=== PATIENT | male | born 1940 | race Caucasian/White ===

== ENCOUNTER 2018-06-04 09:26 | Inpatient (IN) | payer OTHER, MEDICARE ==
--- NOTE | 2018-06-04 10:01 | PDOC ---
History of Present Illness - General History Source: Patient Exam Limitations: No Limitations - History of Present Illness Initial Comments: 06/04/18 10:42 The patient is a 77 year old male , with no significant PMH of who presents to the emergency department s/p fall, that occured yesterday at 2:00pm. The patient reports that he was reaching for a blanket when he fell out of his easy chair. The patient reports falling on his LT side and complains of Lt sided hip and knee pain. The patient reports his LT hip/knee pain is exacerbated with weightbearing. He reports his LT knee pain is exacerbated with active ROM, however denies pain with passive ROM.The patient notes his neighbors were able to lift him back into the chair. The patient notes the neighbors returned later to assist him into bed. The patient reports using a cane occasionally. The patient denies head trauma or LOC. The patient denies prior fall. The patient denies chest pain, shortness of breath, headache and dizziness. Denies fever, chills, nausea, vomit, diarrhea and constipation. Denies dysuria, frequency, urgency and hematuria. Allergies: NKA Social HX: past smoker (quit 40 yrs ago), alcohol use ( beer a day) Surgical HX: prostate and two hernia repairs. PCP: Dr. Ortiz <Socorro Leung - Last Filed: 06/04/18 14:40> <Shante Tate - Last Filed: 06/04/18 15:07> - General Chief Complaint: Injury Stated Complaint: FALL Time Seen by Provider: 06/04/18 10:01 Past History <Socorro Leung - Last Filed: 06/04/18 14:40> - Past Medical History Anemia: No Asthma: No Cancer: Yes (PROSTATE-DX 2010, SKIN) Cardiac Disorders: No CVA: No COPD: No CHF: No Dementia: No Diabetes: No GI Disorders: No Disorders: No HTN: Yes (VARIES FROM HIGH TO LOW - NO MEDS) Hypercholesterolemia: No (BORDERLINE-DIET CONTROLLED) Liver Disease: No Seizures: No Thyroid Disease: No - Surgical History Abdominal Surgery: No Appendectomy: No Cardiac Surgery: No Cholecystectomy: No Lung Surgery: No Neurologic Surgery: No Orthopedic Surgery: No - Suicide/Smoking/Psychosocial Hx Smoking History: Former smoker Have you smoked in the past 12 months: No Number of Cigarettes Smoked Daily: 20 If you are a former smoker, when did you quit?: 1979 Cigars Per Day: 0 Information on smoking cessation initiated: No Hx Alcohol Use: No Drug/Substance Use Hx: No Substance Use Type: Alcohol Hx Substance Use Treatment: No <LeaShante eagle - Last Filed: 06/04/18 15:07> - Past Medical History Allergies/Adverse Reactions: Allergies Allergy/AdvReac Type Severity Reaction Status Date / Time No Known Drug Allergies Allergy Verified 06/04/18 09:51 Home Medications: Ambulatory Orders [place]-3 Fatty Acids/Fish Oil [Fish Oil 1,000 mg Softgel] 1,000 mg PO DAILY 09/05 Timolol Maleate [Istalol] 5 ml OU DAILY 09/06/15 Review of Systems - Review of Systems Able to Perform ROS?: Yes Comments:: 06/04/18 11:00 GENERAL/CONSTITUTIONAL: No fever or chills. No weakness. HEAD, EYES, EARS, NOSE AND THROAT: No change in vision. No ear pain or discharge. No sore throat. CARDIOVASCULAR: No chest pain or shortness of breath. RESPIRATORY: No cough, wheezing, or hemoptysis. GASTROINTESTINAL: No nausea, vomiting, diarrhea or constipation. GENITOURINARY: No dysuria, frequency, or change in urination. MUSCULOSKELETAL: (+) Left hip and left knee pain. painful ambulation. No muscle swelling. No neck or back pain. SKIN: No rash NEUROLOGIC: No headache, vertigo, loss of consciousness, or change in strength/ sensation. ENDOCRINE: No increased thirst. No abnormal weight change. HEMATOLOGIC/LYMPHATIC: No anemia, easy bleeding, or history of blood clots. ALLERGIC/IMMUNOLOGIC: No hives or skin allergy. <Socorro Leung - Last Filed: 06/04/18 14:40> *Physical Exam - Vital Signs Last Vital Signs Temp Pulse Resp BP Pulse Ox 97.6 F 93 H 16 146/90 97 06/04/18 09:41 06/04/18 09:41 06/04/18 09:41 06/04/18 09:41 06/04/18 09:41 - Physical Exam Comments: 06/04/18 10:59 GENERAL: Awake, alert, and fully oriented x3, in no acute distress HEAD: No signs of trauma EYES: PERRLA, EOMI, sclera anicteric, conjunctiva clear ENT: Auricles normal inspection, hearing grossly normal, nares patent, oropharynx clear without exudates. Moist mucosa NECK: Normal ROM, supple, no lymphadenopathy, JVD, or masses LUNGS: Breath sounds equal, clear to auscultation bilaterally. No wheezes, and no crackles HEART: Regular rate and rhythm, normal S1 and S2, no murmurs, rubs or gallops ABDOMEN: Soft, nontender, normoactive bowel sounds. No guarding, no rebound. No masses MUSKULOSKELETAL: + LT is mildly ttp. No ecchymosis, no spinous process tenderness in the cervical, T, or L spine. No chest wall tenderness EXTREMITIES: + Decreased ROM of left hip secondary to patient's pain. Mild left hip ttp. Mild decrease ROM of left knee on passive ROM secondary to pain. full ROM of left knee on passive ROM. No joint line tenderness. No edema. No clubbing or cyanosis. No cords, erythema. NEUROLOGICAL: Cranial nerves II through XII grossly intact. Normal speech. Pt is able to stand on exam with assistance but reluctant to take steps. Finger to nose intact. Rapid alternating movements intact. Reflexes 2/4. Leg/hip flexion LT 2/5, RT 1/5. Dorsiflexion and plantar flexion 5/5. Sensation intact to light touch. SKIN: Warm, Dry, normal turgor, no rashes or lesions noted. <Socorro Leung - Last Filed: 06/04/18 14:40> - Vital Signs Last Vital Signs Temp Pulse Resp BP Pulse Ox 97.6 F 93 H 16 146/90 97 06/04/18 09:41 06/04/18 09:41 06/04/18 09:41 06/04/18 09:41 06/04/18 09:41 <Shante Tate - Last Filed: 06/04/18 15:07> Moderate Sedation - Procedure Monitoring Vital Signs: Procedure Monitoring Vital Signs Temperature 97.6 F 06/04/18 09:41 Pulse Rate 93 H 06/04/18 09:41 Respiratory Rate 16 06/04/18 09:41 Blood Pressure 146/90 06/04/18 09:41 O2 Sat by Pulse Oximetry (%) 97 06/04/18 09:41 <MadhuSocorro - Last Filed: 06/04/18 14:40> - Procedure Monitoring Vital Signs: Procedure Monitoring Vital Signs Temperature 97.6 F 06/04/18 09:41 Pulse Rate 93 H 06/04/18 09:41 Respiratory Rate 16 06/04/18 09:41 Blood Pressure 146/90 06/04/18 09:41 O2 Sat by Pulse Oximetry (%) 97 06/04/18 09:41 <LeaShante - Last Filed: 06/04/18 15:07> ED Treatment Course - LABORATORY CBC & Chemistry Diagram: 06/04/18 10:25 06/04/18 10:25 - RADIOLOGY Radiograph Interpretation: 06/04/18 13:11 EXAM#: TYPE/EXAM: RESULT: [id number] RAD/HIP PELVIS-LEFT Fall with left hip pain. Single AP view of the pelvis. Demineralized osseous structures. Surgical clips are noted in pelvis. Levoscoliosis of lumbosacral spine. Symmetrical bony trabecular pattern is seen in the proximal femur bilaterally. Symmetrical articulation of the hip joints. Normal contour of the femoral heads. No evidence of avascular necrosis. Left hip 2 views. No displaced fracture is seen. Vascular calcifications are noted. Impression. The visualized osseous structures appear intact, no acute bony abnormality seen. Left hip. No displaced fracture is seen. Reported By: Kendrick Cardona MD 06/04/18 1111 EXAM#: TYPE/EXAM: RESULT: [id number] RAD/CHEST - PA Status post fall. AP view of the chest compared with May 03, 2011. Patient is rotated to the left side. No evidence of cardiomegaly. Unremarkable contour of the thoracic aorta. The pulmonary vasculature is normal. No evidence of pulmonary infiltrates, atelectasis. No pleural effusion or pneumothorax is seen. Demineralized osseous structures. Impression. No evidence of active pulmonary disease. Reported By: Kendrick Cardona MD 06/04/18 1145 EXAM#: TYPE/EXAM: RESULT: [id number] US/ABDOMEN US -LIMITED HISTORY PROVIDED: Elevated bilirubin. Real time examination of the abdomen demonstrates the following: The gallbladder is normal in size and does contain multiple gallstones. There is no evidence of intra or extrahepatic biliary duct dilatation. The liver is normal in size and texture with no intrahepatic masses seen. Hepatopedal flow is documented within the main portal vein. The pancreas is normal in size and texture with no pancreatic masses identified. The spleen is not enlarged. There is no evidence of hydronephrosis or acute renal abnormalities. Bilateral renal cysts are present. There is no evidence of AAA. The IVC is patent. IMPRESSION: Cholelithiasis and bilateral renal cysts. No evidence of biliary ductal dilatation or acute pathology within the abdomen. Reported By: Silverio Ashton MD 06/04/18 9605 EXAM#: TYPE/EXAM: RESULT: [id number] CT/HEAD CT WITHOUT CONTRAST New onset of inability to walk. CT scan of the brain. A noncontrast CT scan of the brain was performed. No prior is available for comparison. There is moderate volume loss and ventricular dilatation. Moderate chronic microvascular ischemic changes are present No mass lesion, gross acute infarct or intracranial hemorrhage are identified. Visualized paranasal sinuses and mastoid air cells are well aerated. Calcification of the cavernous carotid arteries are noted. The calvarium is intact . Impression: Moderate atrophy. No gross evidence of a focal intracranial lesion or hemorrhage is seen. Correlate clinically to determine further evaluation and follow-up. Reported By: Vee Liu MD 06/04/18 1410 <Socorro Leung - Last Filed: 06/04/18 14:40> - LABORATORY CBC & Chemistry Diagram: 06/04/18 10:25 06/04/18 10:25 <Shante aTte - Last Filed: 06/04/18 15:07> Medical Decision Making - Medical Decision Making 06/04/18 14:18 Dr. Cordoba's office was paged for admission <Socorro Leung - Last Filed: 06/04/18 14:40> - Medical Decision Making 06/04/18 13:20 Pt presents to the ED complaining of hip pain and difficulty ambulating after fall from an armchair. Able to weight bear but with significant pain. Denies LOC or anticoagulants. Xray is negative for fracture. Labs show elevated bilirubin--US checked in the ED which is negative for obstruction. Will evaluate whether patient is able to walk and discharge home if he is ambulatory. <Shante Tate - Last Filed: 06/04/18 15:07> *DC/Admit/Observation/Transfer - Attestations Scribe Attestion: 06/04/18 11:01 Documentation prepared by Socorro Leung, acting as medical illustrator for Shante Tate MD <Socorro Leung - Last Filed: 06/04/18 14:40> - Discharge Dispostion Decision to Admit order: Yes <Shante Tate - Last Filed: 06/04/18 15:07> Diagnosis at time of Disposition: Unable to ambulate - Discharge Dispostion Condition at time of disposition: Good
[2018-06-04 10:33] LABS: HEMOGLOBIN 14.9 GM/dL (11.7-16.9); MCH 31.3 pg (25.7-33.7); MCHC 35.4 g/dl (32.0-35.9); MEAN CELL VOLUME 88.2 fl (80-96); MEAN PLT VOLUME 7.7 fl (7.5-11.1); PLATELET COUNT 179 K/MM3 (134-434); RBC 4.77 M/mm3 (4.00-5.60); RDW 14.3 % (11.9-15.9); WHITE BLOOD COUNT 6.7 K/mm3 (4.0-10.0)
[2018-06-04] MEDS ORDERED: ACETAMINOPHEN 1000 MG/100 ML VIAL (NON FORMULARY) IVPB ONE (10:43)
[2018-06-04] MEDS ORDERED: ACETAMINOPHEN INJECTION 100 ML IVPB ONE (11:10)
[2018-06-04 11:13] LABS: ALBUMIN 4.3 g/dl (3.4-5.0); ALK PHOS 99 U/L (45-117); ANION GAP 8 MMOL/L (8-16); BILIRUBIN,TOTAL 3.3 mg/dL (0.2-1); BLOOD UREA NITROGEN 24 mg/dL (7-18); CALCIUM 8.9 mg/dL (8.5-10.1); CHLORIDE 109 mmol/L (98-107); CO2 26 mmol/L (21-32); CREATININE 1.3 mg/dL (0.55-1.3); GLUCOSE,RANDOM 147 mg/dL (74-106); SGOT/AST 26 U/L (15-37); SGPT/ALT 40 U/L (13-61); SODIUM 143 mmol/L (136-145); TOT PROT 7.4 g/dl (6.4-8.2)
[2018-06-04] MEDS ORDERED: morphine CARPU-JECT 2 MG/1 ML DISP.SYRIN IVPUSH ONE (11:18)
[2018-06-04] MEDS ORDERED: MORPHINE SULFATE 2 MG/ML VIAL ONE (11:25)
[2018-06-04 12:21] LABS: BILIRUBIN,DIRECT 0.4 mg/dL (0.0-0.2)
[2018-06-04 12:34] LABS: INR 1.19 (0.83-1.09); PROTHROMBIN TIME (PATIENT) 14.1 SEC (9.7-13.0)
--- NOTE | 2018-06-04 15:02 | HP ---
Admitting History and Physical - Primary Care Physician PCP: Violeta Ortiz - Admission Chief Complaint: s/p fall inabilty to ambulate History of Present Illness: 06/04/18 10:42 The patient is a 77 year old male , with no significant PMH of who presents to the emergency department s/p fall, that occured yesterday at 2:00pm. The patient reports that he was reaching for a blanket when he fell out of his easy chair. The patient reports falling on his LT side and complains of Lt sided hip and knee pain. The patient reports his LT hip/knee pain is exacerbated with weightbearing. He reports his LT knee pain is exacerbated with active ROM, however denies pain with passive ROM.The patient notes his neighbors were able to lift him back into the chair. The patient notes the neighbors returned later to assist him into bed. The patient reports using a cane occasionally. The patient denies head trauma or LOC. The patient denies prior fall. History Source: Patient, Medical Record - Past Medical History ENT: Yes: Other (glaucoma) - Smoking History Smoking history: Former smoker Have you smoked in the past 12 months: No Aproximately how many cigarettes per day: 20 If you are a former smoker, when did you quit?: 1978 - Alcohol/Substance Use Hx Alcohol Use: No Home Medications - Allergies Allergies/Adverse Reactions: Allergies Allergy/AdvReac Type Severity Reaction Status Date / Time No Known Drug Allergies Allergy Verified 06/04/18 09:51 - Home Medications Home Medications: Ambulatory Orders [place]-3 Fatty Acids/Fish Oil [Fish Oil 1,000 mg Softgel] 1,000 mg PO DAILY 09/05 Timolol Maleate [Istalol] 5 ml OU DAILY 09/06/15 Review of Systems - Review of Systems Musculoskeletal: reports: Other (unable to ambulate ,) Physical Examination Vital Signs: Vital Signs Temperature 98.0 F 06/04/18 13:35 Pulse Rate 98 H 06/04/18 13:35 Respiratory Rate 18 06/04/18 13:35 Blood Pressure 178/110 H 06/04/18 13:35 O2 Sat by Pulse Oximetry (%) 100 06/04/18 13:35 Constitutional: Yes: Calm, Thin Cardiovascular: Yes: Regular Rate and Rhythm, S1, S2 Respiratory: Yes: CTA Bilaterally Gastrointestinal: Yes: Normal Bowel Sounds, Soft Edema: No Neurological: Yes: Alert, Oriented Labs: CBC, BMP 06/04/18 10:25 06/04/18 10:25 Imaging - Results Chest X-ray: Report Reviewed X-ray: Report Reviewed Cat Scan: Report Reviewed Ultrasound: Report Reviewed Problem List - Problems (1) Status post fall Assessment/Plan: PMR PT neurology emg dvt ppx Code(s): Z91.81 - HISTORY OF FALLING (2) Unable to ambulate Assessment/Plan: lumbar sacral spine xray PT pain control stool softners Code(s): R26.2 - DIFFICULTY IN WALKING, NOT ELSEWHERE CLASSIFIED (3) Glaucoma Assessment/Plan: eye drops Code(s): H40.9 - UNSPECIFIED GLAUCOMA
[2018-06-04] MEDS ORDERED: ACETAMINOPHEN 325 MG TABLET (FP) PO PRN (15:19)
[2018-06-04] MEDS ORDERED: MORPHINE SULFATE 2 MG/ML VIAL IVPUSH PRN (15:20)
[2018-06-04] MEDS ORDERED: ACETAMINOPHEN 325 MG TABLET (FP) PO SCH (18:00)
--- NOTE | 2018-06-04 18:50 | CONS ---
DATE OF CONSULTATION: 06/04/2018 PHYSICAL MEDICINE REHABILITATION CONSULTATION REFERRING PHYSICIAN: Melinda Dhillon MD HISTORY OF PRESENT ILLNESS: The patient is a 77-year-old man with a past medical history of glaucoma and back pain who was admitted to [facility] after he fell at home and was unable to ambulate. The patient states that he was placing a blanket over a chair when he lost his balance, falling on his left side. He developed left hip and knee pain and was unable to get up. The patient claims to have no numbness or tingling. He does note that his balance has been off for some time but denied head trauma or loss of consciousness. The patient has undergone evaluation including a CBC that showed a normal WBC of 6.7, normal hemoglobin of 14.9, a normal platelet count of 179, normal MCV and RDW. The patient's chemistries showed a slightly elevated BUN of 24, a creatinine of 1.3, normal sodium at 143, potassium of 4.0, a slightly elevated chloride of 109 and CO2 normal at 26. The patient had a CT of the head which showed moderate atrophy but no focal intracranial lesion or hemorrhage. The patient underwent an x-ray of his left hip which showed no displaced fracture, no avascular necrosis and symmetric articulation of the hip joint. There was some levoscoliosis of the lumbosacral spine noted. PAST MEDICAL AND SURGICAL HISTORY: Significant for prostate cancer with prostate surgery, two hernia repairs, skin cancer, history of possible hypertension and glaucoma but chronically, the patient does have some degree of back discomfort. ALLERGIES: None noted. SOCIAL HISTORY: The patient lives alone in a co-op apartment with about 12 steps to enter. He is a former tobacco user but quit many decades ago. He states that premorbidly, he was ambulatory without assistive device but again, he did note some loss of balance. REVIEW OF SYSTEMS: No headache, lightheadedness, dizziness, blurry vision. No new double vision. No nausea, vomiting, difficulty swallowing or difficulty chewing. No chest pain, shortness of breath, dyspnea on exertion, cough or abdominal discomfort. No bowel or bladder incontinence. No fever or chills. Again, he complains of some back pain, left hip pain, weakness, difficulty elevating his legs but no numbness, tingling or coldness in the legs. No numbness or tingling in the upper extremities. No bruising or rash noted. PHYSICAL EXAMINATION: GENERAL: The patient is an elderly man seen sitting up on a stretcher in no acute distress. He is awake, alert and cooperative. He appears to have a normal BMI. HEENT: Normocephalic, atraumatic. His extraocular muscles appear full. No obvious facial weakness. No oral ulcers. Dry mucous membranes. NECK: Supple. EXTREMITIES: No pitting edema or calf tenderness. There is perhaps some trace edema noted. NEUROMUSCULAR: He is awake, alert, oriented x3. Cranial nerves 2 through 12 are grossly intact. He has fairly good strength and range with some mild arthritic changes noted in his hands. In the lower extremities, he has difficulty elevating his legs off the bed, especially the left leg, but he does have at least 3 out of 5 knee extensor strength. Good dorsiflexion and plantar flexion strength. Normal sensation to pinprick. No advanced osteo-degenerative changes. He does have pain in the left hip with internal and external rotation but no pain on the right side with internal or external rotation. He does have some mild tenderness across his lower back. OVERALL IMPRESSION: 1. Deficits in mobility activities of daily living status post fall. 2. Left hip pain; cannot rule out occult hip fracture. 3. Left knee pain, probable contusion. 4. Chronic low back pain. 5. Loss of balance. 6. History of hypertension. 7. History of glaucoma. 8. History of prostate cancer status post surgery. 9. Elevated BUN to creatinine. 10. Increased risk for deep vein thrombosis due to immobility. PLANS/SUGGESTIONS: 1. Agree with neurologic evaluation. 2. Consider CAT scan of the left hip if hip pain continues. 3. Consider orthopedic consultation. 4. Pain control. 5. Physical therapy. 6. Deep vein thrombosis prophylaxis until more mobile; would consider subcutaneous heparin 5000 units q. 12 hours. 7. Skin precautions; avoid heel and sacral pressure. 8. Monitor for constipation, especially since he is receiving pain medication and is immobile. 9. The patient may require short-term rehab in a [facility] facility vs. at home, depending on his response to the above measures, workup and length of hospitalization. Thank you for this referral. DARYL MELENDEZ M.D. KAREN/[id number]
[2018-06-04] MEDS: TIMOLOL 0.5% OPHTHALMIC SOL 5 ML BOTTLE OU SCH (22:11)
[2018-06-05 05:46] LABS: BASO % 0.7 % (0-2.0); EOS % 0.7 % (0-4.5); HEMATOCRIT 42.7 % (35.4-49); HEMOGLOBIN 14.8 GM/dL (11.7-16.9); LYMPH % 7.7 % (8-40); MCH 30.9 pg (25.7-33.7); MCHC 34.7 g/dl (32.0-35.9); MEAN CELL VOLUME 88.9 fl (80-96); MEAN PLT VOLUME 7.7 fl (7.5-11.1); MONO % 9.7 % (3.8-10.2); NEUT % 81.2 % (42.8-82.8); PLATELET COUNT 156 K/MM3 (134-434); RDW 14.5 % (11.9-15.9); WHITE BLOOD COUNT 6.2 K/mm3 (4.0-10.0)
[2018-06-05 06:13] LABS: ALBUMIN 4.1 g/dl (3.4-5.0); ALK PHOS 92 U/L (45-117); ANION GAP 8 MMOL/L (8-16); BILIRUBIN,TOTAL 4.1 mg/dL (0.2-1); BLOOD UREA NITROGEN 20 mg/dL (7-18); CALCIUM 8.6 mg/dL (8.5-10.1); CHLORIDE 109 mmol/L (98-107); CO2 26 mmol/L (21-32); GLUCOSE,RANDOM 107 mg/dL (74-106); MAGNESIUM 2.1 mg/dL (1.8-2.4); PHOSPHOROUS 2.7 mg/dL (2.5-4.9); POTASSIUM 3.6 mmol/L (3.5-5.1); SGOT/AST 22 U/L (15-37); SGPT/ALT 31 U/L (13-61); SODIUM 143 mmol/L (136-145); TOT PROT 7.1 g/dl (6.4-8.2)
[2018-06-05] MEDS: TIMOLOL 0.5% OPHTHALMIC SOL 5 ML BOTTLE OU SCH ×2 (10:55→22:31)
--- NOTE | 2018-06-05 19:49 | PN ---
Progress Note, Physician Chief Complaint: S/p fall History of Present Illness: Previous notes and events reviewed awake and alert NAD complain of L leg pain L hip xray neg for fracture Head CT neg for gross focal intracranial lesion or hemorrhage - Current Medication List Current Medications: Active Medications Acetaminophen (Tylenol -) 650 mg PO Q6H PRN PRN Reason: PAIN LEVEL 1-5 Morphine Sulfate (Morphine Sulfate) 2 mg IVPUSH Q4H PRN PRN Reason: PAIN LEVEL 7 - 10 Timolol Maleate (Timoptic 0.5%) 1 drop OU BID ALAN Last Admin: 06/05/18 10:55 Dose: 1 drop - Objective Vital Signs: Vital Signs Temperature 99.0 F 06/05/18 14:30 Pulse Rate 85 06/05/18 14:30 Respiratory Rate 20 06/05/18 14:30 Blood Pressure 131/79 06/05/18 14:30 O2 Sat by Pulse Oximetry (%) 97 06/05/18 14:00 Constitutional: Yes: No Distress, Anxious (states he wants to go home) Eyes: Yes: Conjunctiva Clear Neck: Yes: Supple Cardiovascular: Yes: Regular Rate and Rhythm Respiratory: Yes: CTA Bilaterally Gastrointestinal: Yes: Normal Bowel Sounds, Soft Musculoskeletal: Yes: Muscle Weakness, Other (L leg and hip pain) Extremities: Yes: WNL Edema: No Integumentary: Yes: WNL Neurological: Yes: Alert, Oriented Psychiatric: Yes: Alert, Oriented Labs: CBC, BMP 06/05/18 05:20 06/05/18 05:20 INR, PTT INR 1.19 (0.83-1.09) H 06/04/18 10:25 <Mara Rogers - Last Filed: 06/05/18 19:44> - Current Medication List Current Medications: Active Medications Acetaminophen (Tylenol -) 650 mg PO Q6H PRN PRN Reason: PAIN LEVEL 1-5 Docusate Sodium (Colace -) 300 mg PO HS ALAN Heparin Sodium (Porcine) (Heparin -) 5,000 unit SQ BID ALAN Morphine Sulfate (Morphine Sulfate) 2 mg IVPUSH Q4H PRN PRN Reason: PAIN LEVEL 7 - 10 Senna (Senna -) 2 tab PO HS ALAN Timolol Maleate (Timoptic 0.5%) 1 drop OU BID ALAN Last Admin: 06/05/18 10:55 Dose: 1 drop - Objective Vital Signs: Vital Signs Temperature 99 F 06/05/18 19:50 Pulse Rate 91 H 06/05/18 19:50 Respiratory Rate 18 06/05/18 19:50 Blood Pressure 132/92 06/05/18 19:50 O2 Sat by Pulse Oximetry (%) 100 06/05/18 19:50 Labs: CBC, BMP 06/05/18 05:20 06/05/18 05:20 INR, PTT INR 1.19 (0.83-1.09) H 06/04/18 10:25 <David Cordoba - Last Filed: 06/05/18 21:06> Problem List - Problems (1) Glaucoma Code(s): H40.9 - UNSPECIFIED GLAUCOMA (2) Left leg pain Code(s): M79.605 - PAIN IN LEFT LEG (3) Status post fall Code(s): Z91.81 - HISTORY OF FALLING (4) Unable to ambulate Code(s): R26.2 - DIFFICULTY IN WALKING, NOT ELSEWHERE CLASSIFIED <Mara Rogers - Last Filed: 06/05/18 19:44> Assessment/Plan -neurology consult pending -PT -ortho consult placed -tylenol PRN for pain management -colace and senna bowel regimen -cont with timolol for glaucoma -low sodium diet -elev BUN/Cr trending down, will monitor, if cont to stay elev renal consult -dvt ppx <Mara Rogers - Last Filed: 06/05/18 19:44> I HAVE EXAMINED THE PATIENT AND AGREE WITH THE ABOVE NOTE <David Cordoba - Last Filed: 06/05/18 21:06>
[2018-06-05] MEDS: ALPRAZolam 0.25 MG TABLET PO ONE ×2 (22:17→22:30)
[2018-06-05] MEDS ORDERED: HALOPERIDOL LACTATE 5 MG/ML IM ONE (22:29)
[2018-06-05] MEDS: DOCUSATE SODIUM 100 MG CAPSULE (FP) PO SCH (22:30)
[2018-06-05] MEDS: SENNOSIDES 8.6MG TABLET (FP) PO SCH (22:31)
[2018-06-05] MEDS: HEPARIN NA (PORCINE) 5,000 UNITS/ML 1ML VIAL SQ SCH (22:31)
[2018-06-06 04:15] VITALS: BMI 23.3
[2018-06-06 07:46] LABS: HEMATOCRIT 39.5 % (35.4-49); HEMOGLOBIN 14.1 GM/dL (11.7-16.9); MCHC 35.6 g/dl (32.0-35.9); MEAN CELL VOLUME 87.2 fl (80-96); PLATELET COUNT 145 K/MM3 (134-434); RBC 4.53 M/mm3 (4.00-5.60); RDW 13.9 % (11.9-15.9); WHITE BLOOD COUNT 5.8 K/mm3 (4.0-10.0)
[2018-06-06 07:55] LABS: ALBUMIN 3.6 g/dl (3.4-5.0); ALK PHOS 82 U/L (45-117); ANION GAP 8 MMOL/L (8-16); BILIRUBIN,TOTAL 4.2 mg/dL (0.2-1); BLOOD UREA NITROGEN 23 mg/dL (7-18); CALCIUM 8.2 mg/dL (8.5-10.1); CHLORIDE 108 mmol/L (98-107); CO2 28 mmol/L (21-32); GLUCOSE,RANDOM 88 mg/dL (74-106); POTASSIUM 3.4 mmol/L (3.5-5.1); SGOT/AST 27 U/L (15-37); SGPT/ALT 25 U/L (13-61); SODIUM 144 mmol/L (136-145); TOT PROT 6.5 g/dl (6.4-8.2)
[2018-06-06] MEDS: HEPARIN NA (PORCINE) 5,000 UNITS/ML 1ML VIAL SQ SCH ×2 (11:06→22:04)
[2018-06-06] MEDS: TIMOLOL 0.5% OPHTHALMIC SOL 5 ML BOTTLE OU SCH ×2 (11:06→22:39)
--- NOTE | 2018-06-06 13:58 | CONSULT ---
Consult - text type - Consultation Consultation Note: Asked to eval this 77M s/p fall two days ago, c/o left hip pain. Having significant difficulty weight bearing. Xray read as negative but pain persists. PMH: denies Meds: reviewed in chart All: NKDA FH: n/c SH:former smoker, neg etoh/ivda ROS: no fevers/chills/weight loss PE: Aox 3, NAD, cooperative patient very thin, sitting comfortably in bed B/L UE joint motion without pain LLE: unable to SLR independently, has pain with passive IR, less with ER RLE: unable to SLR independently, no pain with passive ROM B/L LE skin intact, no edema, Distal pulses 2+ Motor strength intact otherwise. Xrays: Minimally displaced fracture of greater trochanter Imp: Left Greater trochanteric fracture -If only GT fracture then will need PT/WBAT, however, given level of pain and inability to weight bear or straight leg raise in bed, will need MRI of the hip to r/o occult extension into the intertrochanteric region -will follow after MRI -bedrest for now -venodynes for DVT prophylaxis
--- NOTE | 2018-06-06 14:12 | CONSULT ---
Consult - text type - Consultation Consultation Note: NEUROLOGY CONSULTATION is greatly appreciated: This 77 yo RH s man lives alone. 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 On no meds. He relates a "few months" of gradual worsening of walking and balance. He gave up driving 1 mo ago because the leg were "too heavy" and "wouldn't move. " Gradual deterioration in handwriting x few months. Now admitted after a fall with inability to get up. Dr. Evans's consult read and appreciated. Brain CT (reviewed): moderate, diffuse, atrophy. X-Rays of Hips, Pelvis, LS spine all - for fractures. GUERO: No head trauma. No bruits. Chest scar from resection of skin cancer. - Patricks. NEURO: Awake, alert. Ox3. TRUMP > PMURT. Recalls 2 of 3 @ 3 mins. + Glabella. Hypophonic speech. Masked facies. Otherwise CN II-XII normal including gag Bradykinetic (L>R). Rest tremor in feet. Severe cogwheel rigidity. Decreased FAUSTINA's Normal strength and reflexes. Toes downgoing. No FTN dystaxia Sensation normal Gait: Frozen, retropulsive. IMP: Parkinson's Disease. Mild OMS SUGGEST:MRI of brain (C-) Begin Sinemet CR 25/100 TID with meals. Check B12, TSH, RPR Mobilize OO Bed with Walker and PT. Thank you very much, Chinmay Mitchell MD
[2018-06-06] MEDS ORDERED: traMADol HCL 50 MG TABLET PO PRN (14:14)
--- NOTE | 2018-06-06 14:22 | PN ---
Progress Note, Physician Chief Complaint: S/P fall History of Present Illness: NAD BLLE weakness Seen by orthopedic surgery and neurology new diagnosis of parkinson's started on Sinemet - Current Medication List Current Medications: Active Medications Acetaminophen (Tylenol -) 650 mg PO Q6H PRN PRN Reason: PAIN LEVEL 1-5 Carbidopa/Levodopa (Sinemet *Cr* 25/100 -) 1 combo PO TID [facility] Docusate Sodium (Colace -) 300 mg PO [facility] Last Admin: 06/05/18 22:30 Dose: Not Given Heparin Sodium (Porcine) (Heparin -) 5,000 unit SQ BID [facility] Last Admin: 06/06/18 11:06 Dose: 5,000 unit Potassium Chloride (K-Dur -) 40 meq PO DAILY [facility] Senna (Senna -) 2 tab PO [facility] Last Admin: 06/05/18 22:31 Dose: Not Given Timolol Maleate (Timoptic 0.5%) 1 drop OU BID [facility] Last Admin: 06/06/18 11:06 Dose: 1 drop Tramadol HCl (Ultram -) 50 mg PO Q8H PRN PRN Reason: PAIN LEVEL 6-10 - Objective Vital Signs: Vital Signs Temperature 98.3 F 06/06/18 06:00 Pulse Rate 83 06/06/18 06:00 Respiratory Rate 20 06/06/18 06:00 Blood Pressure 123/76 06/06/18 06:00 O2 Sat by Pulse Oximetry (%) 96 06/05/18 21:00 Constitutional: Yes: Well Nourished, No Distress, Calm Cardiovascular: Yes: Regular Rate and Rhythm Respiratory: Yes: Regular Gastrointestinal: Yes: Normal Bowel Sounds, Soft Musculoskeletal: Yes: Muscle Weakness Edema: No Peripheral Pulses WNL: Yes Neurological: Yes: Alert, Confusion Psychiatric: Yes: Alert Labs: CBC, BMP 06/06/18 06:35 06/06/18 06:35 INR, PTT INR 1.19 (0.83-1.09) H 06/04/18 10:25 Problem List - Problems (1) Parkinson disease Assessment/Plan: -Seen by Neurology -MRI brain ordered -Started on Sinemet Code(s): G20 - PARKINSON'S DISEASE (2) Hypokalemia Assessment/Plan: -KCl 40 meq once -check bmp in am Code(s): E87.6 - HYPOKALEMIA (3) Status post fall Assessment/Plan: -Physical therapy -MRI Lumbar spine without contrast -safety precautions Code(s): Z91.81 - HISTORY OF FALLING (4) Left hip pain Assessment/Plan: -orthopedic consult -MRI Left hip -tylenol or tramadol for pain -Physical therapy Code(s): M25.552 - PAIN IN LEFT HIP Assessment/Plan see problem list
[2018-06-06] MEDS: POTASSIUM CHLORIDE TABS 20 MEQ TABLET.ER (FP) PO SCH (17:44)
[2018-06-06] MEDS ORDERED: PT OWN MED DRAWER 7, Y5N ONE ×2 (21:42→23:16)
[2018-06-06] MEDS: SENNOSIDES 8.6MG TABLET (FP) PO SCH (22:04)
[2018-06-06] MEDS: DOCUSATE SODIUM 100 MG CAPSULE (FP) PO SCH (22:04)
[2018-06-07] MEDS ORDERED: PT OWN MED DRAWER 7, Y5N ONE ×4 (07:04→23:00)
[2018-06-07 07:08] LABS: ANION GAP 7 MMOL/L (8-16); BLOOD UREA NITROGEN 30 mg/dL (7-18); CALCIUM 8.9 mg/dL (8.5-10.1); CHLORIDE 110 mmol/L (98-107); CO2 29 mmol/L (21-32); GLUCOSE,RANDOM 105 mg/dL (74-106); POTASSIUM 3.8 mmol/L (3.5-5.1); SODIUM 145 mmol/L (136-145)
--- NOTE | 2018-06-07 10:51 | PN ---
Progress Note (short form) - Note Progress Note: MRI of the left Hip reviewed There is an impacted fracture of the greater trochanter. The marrow edema extends distally and medially without violation into the cortical bone or femoral head/neck/intertrochanteric region -in my opinion, atraumatic extension of the fracture into surgical fracture area is unlikely -recommend PT consult, WBAT LLE with assistive device and ambulation training -dispo to subacute facility if necessary -f/u with me as outpatient in 2 weeks
[2018-06-07] MEDS: HEPARIN NA (PORCINE) 5,000 UNITS/ML 1ML VIAL SQ SCH ×3 (10:54→22:05)
[2018-06-07] MEDS: POTASSIUM CHLORIDE TABS 20 MEQ TABLET.ER (FP) PO SCH (10:54)
[2018-06-07] MEDS: TIMOLOL 0.5% OPHTHALMIC SOL 5 ML BOTTLE OU SCH ×3 (10:55→22:04)
--- NOTE | 2018-06-07 12:08 | PN ---
Progress Note, Physician Chief Complaint: S/P fall History of Present Illness: NAD BLLE weakness Seen by orthopedic surgery and neurology new diagnosis of parkinson's started on Sinemet MRI brain, l-spine and LLE done MRI L Spine: Moderate levoscoliosis with degenerative disease lumbar or lumbar lumbosacral spine. Aseptic discitis L2-L3 with no evidence of prevertebral or epidural soft tissue masses. Moderate degree of stenosis L4-L5 related to a grade 1 anterolisthesis of L4-L5, diffuse bulging annulus with hypertrophic degenerative ages articular facets with thickening of ligamenta flava. No suspicious pathologic bone marrow replacement lumbar vertebrae, acute compression fracture or paraspinal masses. No evidence of severe stenosis. Multiple right and left renal cysts with no evidence of obstructive uropathy. MRI LLE: Impacted fracture greater trochanter of the left hip With extension of the fracture to the medial aspect of the proximal femur without complete disruption of the medial cortex or malalignment. Hematoma surrounding the fracture site with extensive soft tissue swelling of the adjacent musculature involving the gluteal muscle group and abductor groups. The sacrum and SI joints unremarkable. No evidence of intrapelvic hematoma. No evidence of acetabular fracture. MRI Brain: Ischemic changes in the white matter of both cerebral hemisphere sequela most probably to long- standing hypertension or small vessel territory No evidence acute infarct. No evidence acute intracerebral hemorrhage, subdural fluid collection or hydrocephalus. No evidence of normal pressure hydrocephalus. - Current Medication List Current Medications: Active Medications Acetaminophen (Tylenol -) 650 mg PO Q6H PRN PRN Reason: PAIN LEVEL 1-5 Carbidopa/Levodopa (Sinemet *Cr* 25/100 -) 1 combo PO TIDCM [facility] Stop: 06/09/18 17:31 Last Admin: 06/07/18 10:54 Dose: Not Given Carbidopa/Levodopa (Sinemet *Cr* 25/100 -) 1 combo PO TID@0700,1200,1700 [facility] Docusate Sodium (Colace -) 300 mg PO HS [facility] Last Admin: 06/06/18 22:04 Dose: 300 mg Heparin Sodium (Porcine) (Heparin -) 5,000 unit SQ BID [facility] Last Admin: 06/07/18 10:59 Dose: Not Given Potassium Chloride (K-Dur -) 40 meq PO DAILY [facility] Last Admin: 06/07/18 10:54 Dose: Not Given Senna (Senna -) 2 tab PO HS [facility] Last Admin: 06/06/18 22:04 Dose: 2 tab Timolol Maleate (Timoptic 0.5%) 1 drop OU BID [facility] Last Admin: 06/07/18 10:55 Dose: Not Given Tramadol HCl (Ultram -) 50 mg PO Q8H PRN PRN Reason: PAIN LEVEL 6-10 Last Admin: 06/06/18 17:44 Dose: 50 mg - Objective Vital Signs: Vital Signs Temperature 98.1 F 06/06/18 18:00 Pulse Rate 91 H 06/06/18 18:00 Respiratory Rate 06/06/18 21:00 Blood Pressure 150/105 H 06/06/18 18:00 O2 Sat by Pulse Oximetry (%) 96 06/06/18 21:00 Constitutional: Yes: Well Nourished, No Distress, Calm Cardiovascular: Yes: Regular Rate and Rhythm Respiratory: Yes: Regular Gastrointestinal: Yes: Normal Bowel Sounds, Soft Genitourinary: Yes: WNL Musculoskeletal: Yes: Muscle Weakness Edema: No Peripheral Pulses WNL: Yes Neurological: Yes: Alert, Oriented Psychiatric: Yes: Alert, Oriented Labs: CBC, BMP 06/06/18 06:35 06/07/18 05:50 INR, PTT INR 1.19 (0.83-1.09) H 06/04/18 10:25 Problem List - Problems (1) Parkinson disease Assessment/Plan: -Seen by Neurology -MRI brain reviewed -Started on Sinemet Code(s): G20 - PARKINSON'S DISEASE (2) Hypokalemia Assessment/Plan: -resolved -KCl 20 meq po daily -monitor trend Code(s): E87.6 - HYPOKALEMIA (3) Status post fall Assessment/Plan: -Physical therapy -MRI Lumbar spine without contrast reviewed -NS consult -safety precautions Code(s): Z91.81 - HISTORY OF FALLING (4) Left hip pain Assessment/Plan: -orthopedic consult -MRI Left hip reviewed -tylenol or tramadol for pain -recommended Physical therapy with WBAT Code(s): M25.552 - PAIN IN LEFT HIP Assessment/Plan see problem list Physical therapy
[2018-06-07] MEDS: GABAPENTIN 100 MG CAPSULE (FP) PO SCH ×2 (15:15→22:04)
--- NOTE | 2018-06-07 16:20 | PN ---
Progress Note (short form) - Note Progress Note: NEUROSURGERY CONSULT DICTATED H/o HTN and lumbar stenosis; s/p mechanical fall a couple days ago at home. The patient reports that he was reaching for a blanket on a chair when it slipped and he fell out of chair and landed on the L side. Pain form low back to L hip and L anterior thigh. 2 months h/o worsening stiffness and difficulty ambulating. Worsening handwriting. Denies tremor. No recent infections or F/ C. First fall. Family at bedside. PE: AF, VSS HEENT- NC/AT; Neck- supple; Cor- RR; Lungs-CTA B; Abd- benign, + BS; Ext- no sign of DVT A/A/Ox3; speech is slow but generally fluent CN- intact; Motor- at least 4/5 b UE/LE, increased tone b UE/LE; Sensation- intact LT and vibration; DTR- hyporeflexic B; Cerebellar- B intention tremor WBC 5.8; Cr 1.0 Brain MRI- moderate atrophy, no bleed/edema LS spine MRI- L2-3 disc space edema with endplate changes, minimal paraspinal swelling; L4-5 spondylolisthesis with moderate stenosis; multilevel DDD with facet arthrosis Acute L2-3 DDD with endplate Modic changes and L L2-3 radiculopathy; L4-5 spondylolisthesis with stenosis - neurosurgical intervention unlikely to significantly improve his overall functions 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
--- NOTE | 2018-06-07 18:03 | CONS ---
DATE OF CONSULTATION: 06/07/2018 REQUESTING PHYSICIAN: Melinda Dhillon MD CHIEF COMPLAINT: Lower back pain and leg L2-L3 radiculopathy. HISTORY OF PRESENT ILLNESS: The patient is a 77-year-old, right-handed male with history of lumbar spinal stenosis who complains of 3+ day history of acute onset lower back pain and left lower extremity radiculopathy. He has a history of lumbar spinal stenosis that was treated medically in the past. For the past 2 months, the patient has complained of increasing stiffness and ability to ambulate. He also noticed worsening of hand writing. He denies new bowel and bladder dysfunction. He has felt increasing feeling increasing stiff and has not been able to function or walk well. Three plus days ago, he was getting up to reach with a blanket over a chair when the blanket slipped and he landed on the floor on the left side. He experienced pain radiating down through the left hip and anterior thigh, just short of the left knee. There was no right-sided pain. He has not been able to get up and ambulate well since. This is his first fall. PAST MEDICAL HISTORY: Significant for lumbar spinal stenosis. CURRENT MEDICATIONS: Include Tylenol, subcutaneous heparin, gabapentin, Timoptic, Colace, senna, Sinemet, Ultram, and potassium chloride. ALLERGIES: No known drug allergies. FAMILY HISTORY: Noncontributory. There is no history of Parkinson's disease. SOCIAL HISTORY: He does not smoke and only drinks alcohol socially. He lives at home with his . He is retired. REVIEW OF SYSTEMS: Otherwise negative for major constitutional, head and neck, cardiovascular, pulmonary, gastrointestinal, genitourinary, oncological, neurological, or psychological problems except for the above. PHYSICAL EXAMINATION: Vital Signs: Temperature is 97.8, blood pressure is 155/99 with pulse rate of 103, O2 saturation is 96% on room air. HEENT: Shows him to be normocephalic, atraumatic, anicteric. Neck: Supple, with no carotid bruits. Coronary: Examination demonstrated regular rhythm. Lungs: Clear bilaterally. Abdomen: Benign. Extremities: Examination showed no signs of DVT. Neurologic: He is awake, alert, and oriented x3. His speech is generally slow, but intact. There is no aphasia. Cranial nerve examination is intact II-XII. Motor examination shows at least 4/5 and 5/5 strength of the bilateral upper and lower extremities. He does have increased tone of the upper and lower extremities bilaterally. Sensory examination is intact to light touch in vibratory sensation. Deep tendon reflexes are hyporeflexic throughout. There is no pathological sign. The gait is not tested secondary to safety reasons. Cerebellar examination demonstrated bilateral intentional tremor. LABORATORY EXAMINATION: Shows a white blood cell count of 5.8, hemoglobin 14.1, platelet count of 145,000. INR is 1.19, serum sodium is 145, potassium 3.8, BUN 30, creatinine 1.0. Calcium is 8.9. CT scan of the head done on June 04 demonstrated moderate cerebral atrophy. There is no fracture or bleed. There is no acute stroke noted. MRI of the brain from June 06 demonstrated a moderate cerebral atrophy with mild periventricular small vessel disease. There is no acute infarct or bleed. There is no subdural hematoma. MRI of the lumbar spine demonstrated multilevel degenerative disc disease. There is acute disc space degeneration of L2-L3 with disc space edema as well as endplate motor changes. There is minimal paraspinal edema or swelling. There is moderate L4-L5 spondylolisthesis with associated facet and ligamentum hypertrophy, which results in moderate spinal stenosis. There is also multilevel degenerative disc disease with facet arthrosis and ligamentum hypertrophy at multiple levels. There are no acute fractures. IMPRESSION: 1. L2-L3 acute degenerative disc disease with acute left L2-L3 radiculopathy. 2. Chronic L4-L5 spondylolisthesis with moderate stenosis. 3. 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 4. Hypertension. RECOMMENDATIONS: The patient presents with a 2-month history of progressive ataxia and stiffness as well as worsening continued deterioration of his handwriting with micrographia. He complains of some pain in his lower back radiating to the left anterior thigh consistent with L2 and L3 distribution. There is MRI evidence of L2-L3 edema and endplate changes. The patient has no signs of infection otherwise and has no recent infections either. White blood cell count is normal. He is afebrile. I would recommend baseline ESR and C-reactive protein and blood cultures just to be safe. At the same time, he is already on gabapentin 200 mg p.o. b.i.d., which could be increased to 300 mg t.i.d. in the next few days if his pain is not better controlled. A course of physical and occupational therapy is recommended. He is started on Sinemet by the treating neurologist and should continue to be followed for that particular diagnosis. Safety precautions are of importance because of his potential diagnosis of Parkinson's. Hopefully with a course of pharmacological treatment and rehabilitation, he will continue to improve and function somewhat better. He does understand that this is a neurodegenerative disc disease and he will likely continue to deteriorate through time. The above was discussed with the patient and family at bedside. All questions were answered. KAYA PAUL M.D. [id number]
[2018-06-07] MEDS: DOCUSATE SODIUM 100 MG CAPSULE (FP) PO SCH (22:04)
[2018-06-07] MEDS: SENNOSIDES 8.6MG TABLET (FP) PO SCH (22:05)
[2018-06-08] MEDS: GABAPENTIN 100 MG CAPSULE (FP) PO SCH ×3 (06:12→21:50)
[2018-06-08] MEDS: POTASSIUM CHLORIDE TABS 20 MEQ TABLET.ER (FP) PO SCH (09:06)
[2018-06-08] MEDS: HEPARIN NA (PORCINE) 5,000 UNITS/ML 1ML VIAL SQ SCH ×2 (09:06→21:38)
[2018-06-08] MEDS: TIMOLOL 0.5% OPHTHALMIC SOL 5 ML BOTTLE OU SCH ×2 (09:06→21:49)
--- NOTE | 2018-06-08 10:27 | PN ---
Progress Note (short form) - Note Progress Note: NEUROSURGERY Much less low back/L hip/L anterior thigh pain. Less stiffness. PE: AF, VSS HEENT- NC/AT; Neck- supple; Cor- RR; Lungs-CTA B; Abd- benign, + BS; Ext- no sign of DVT A/A/Ox3; speech is slow but generally fluent CN- intact; Motor- at least 4/5 b UE/LE, increased tone B UE/LE; Sensation- intact LT and vibration; DTR- hyporeflexic B; Cerebellar- B intention tremor CRP 4.5; ESR 12; blood cultures taken Brain MRI- moderate atrophy, no bleed/edema LS spine MRI- L2-3 disc space edema with endplate changes, minimal paraspinal swelling; L4-5 spondylolisthesis with moderate stenosis; multilevel DDD with facet arthrosis Acute L2-3 DDD with endplate Modic changes and L L2-3 radiculopathy; L4-5 spondylolisthesis with stenosis - neurosurgical intervention unlikely to significantly improve his overall functions 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
--- NOTE | 2018-06-08 14:15 | PN ---
Progress Note, Physician Chief Complaint: patient seen in bed macualr rash on his upper back non prurituc - Current Medication List Current Medications: Active Medications Acetaminophen (Tylenol -) 650 mg PO Q6H PRN PRN Reason: PAIN LEVEL 1-5 Carbidopa/Levodopa (Sinemet *Cr* 25/100 -) 1 combo PO TIDCM [facility] Stop: 06/09/18 17:31 Last Admin: 06/08/18 12:31 Dose: 1 combo Carbidopa/Levodopa (Sinemet *Cr* 25/100 -) 1 combo PO TID@0700,1200,1700 [facility] Docusate Sodium (Colace -) 300 mg PO HS [facility] Last Admin: 06/07/18 22:04 Dose: 300 mg Gabapentin (Neurontin -) 200 mg PO TID [facility] Last Admin: 06/08/18 06:12 Dose: 200 mg Heparin Sodium (Porcine) (Heparin -) 5,000 unit SQ BID [facility] Last Admin: 06/08/18 09:06 Dose: 5,000 unit Potassium Chloride (K-Dur -) 20 meq PO DAILY [facility] Last Admin: 06/08/18 09:06 Dose: 20 meq Senna (Senna -) 2 tab PO HS [facility] Last Admin: 06/07/18 22:05 Dose: 2 tab Timolol Maleate (Timoptic 0.5%) 1 drop OU BID [facility] Last Admin: 06/08/18 09:06 Dose: 1 drop Tramadol HCl (Ultram -) 50 mg PO Q8H PRN PRN Reason: PAIN LEVEL 6-10 Last Admin: 06/06/18 17:44 Dose: 50 mg - Objective Vital Signs: Vital Signs Temperature 99 F 06/08/18 08:57 Pulse Rate 84 06/08/18 08:57 Respiratory Rate 18 06/08/18 08:57 Blood Pressure 160/94 06/08/18 08:57 O2 Sat by Pulse Oximetry (%) 96 06/07/18 21:00 Constitutional: Yes: Calm Neck: Yes: Trachea Midline Cardiovascular: Yes: Regular Rate and Rhythm, S1, S2 Respiratory: Yes: CTA Bilaterally Gastrointestinal: Yes: Normal Bowel Sounds, Soft Integumentary: Yes: Rash Neurological: Yes: Alert, Oriented Labs: CBC, BMP 06/06/18 06:35 06/07/18 05:50 INR, PTT INR 1.19 (0.83-1.09) H 06/04/18 10:25 Problem List - Problems (1) Status post fall Assessment/Plan: PMR consult will need SNF PT eval noted neurology- sinemet and MRI brain no acute infarct emg dvt ppx Code(s): Z91.81 - HISTORY OF FALLING (2) Unable to ambulate Assessment/Plan: lumbar sacral spine xray and lumbar MRI noted TYRESE on board no surgical intervention at this time PT pain control stool softners gabapentin Code(s): R26.2 - DIFFICULTY IN WALKING, NOT ELSEWHERE CLASSIFIED (3) Glaucoma Assessment/Plan: eye drops Code(s): H40.9 - UNSPECIFIED GLAUCOMA Assessment/Plan CCM for snf placemet
--- NOTE | 2018-06-08 14:59 | DS ---
Physical Examination Vital Signs: Vital Signs Temperature 99 F 06/08/18 08:57 Pulse Rate 84 06/08/18 08:57 Respiratory Rate 18 06/08/18 08:57 Blood Pressure 160/94 06/08/18 08:57 O2 Sat by Pulse Oximetry (%) 96 06/07/18 21:00 patient seen and examiend no distress Constitutional: Yes: Calm Cardiovascular: Yes: Regular Rate and Rhythm, S1, S2 Gastrointestinal: Yes: Normal Bowel Sounds, Soft Labs: CBC, BMP 06/06/18 06:35 06/07/18 05:50 Discharge Summary Reason For Visit: UNABLE TO WALK Current Active Problems Glaucoma (Acute) Hypokalemia (Acute) Left hip pain (Acute) Left leg pain (Acute) Parkinson disease (Acute) Status post fall (Acute) Unable to ambulate (Acute) Hospital Course: Primary Care Physician PCP: Violeta Ortiz - Admission Chief Complaint: s/p fall inabilty to ambulate History of Present Illness: 06/04/18 10:42 The patient is a 77 year old male , with no significant PMH of who presents to the emergency department s/p fall, that occured yesterday at 2:00pm. The patient got MRI of brain and lumbar spine seen by TYRESE no sugical interentin seen by PMR needs SNF started in sinemet and neurotin Condition: Improved - Instructions Disposition: ALF FACILITY - Home Medications Comprehensive Discharge Medication List: Ambulatory Orders [place]-3 Fatty Acids/Fish Oil [Fish Oil 1,000 mg Softgel] 1,000 mg PO DAILY 09/05 Timolol Maleate [Istalol] 5 ml OU DAILY 09/06/15
[2018-06-08 17:47] LABS: ANION GAP 8 MMOL/L (8-16); BLOOD UREA NITROGEN 35 mg/dL (7-18); CALCIUM 8.5 mg/dL (8.5-10.1); CHLORIDE 112 mmol/L (98-107); CO2 27 mmol/L (21-32); CREATININE 0.9 mg/dL (0.55-1.3); GLUCOSE,RANDOM 91 mg/dL (74-106); POTASSIUM 3.8 mmol/L (3.5-5.1); SODIUM 147 mmol/L (136-145)
[2018-06-08] MEDS: TRIAMCINOLONE ACET 0.025% CREAM 15 GM TUBE TP SCH (21:49)
[2018-06-08] MEDS: DOCUSATE SODIUM 100 MG CAPSULE (FP) PO SCH (21:50)
[2018-06-08] MEDS: SENNOSIDES 8.6MG TABLET (FP) PO SCH (21:50)
[2018-06-09] MEDS: GABAPENTIN 100 MG CAPSULE (FP) PO SCH (06:26)
[2018-06-09] MEDS ORDERED: PT OWN MED DRAWER 7, Y5N ONE (09:14)
[2018-06-09] MEDS: HEPARIN NA (PORCINE) 5,000 UNITS/ML 1ML VIAL SQ SCH (09:26)
[2018-06-09] MEDS: POTASSIUM CHLORIDE TABS 20 MEQ TABLET.ER (FP) PO SCH (09:26)
[2018-06-09] MEDS: TIMOLOL 0.5% OPHTHALMIC SOL 5 ML BOTTLE OU SCH (09:27)
[2018-06-09] MEDS: TRIAMCINOLONE ACET 0.025% CREAM 15 GM TUBE TP SCH (09:27)
--- NOTE | 2018-06-09 10:48 | PN ---
Progress Note, Physician Chief Complaint: S/P fall History of Present Illness: NAD BLLE weakness Seen by orthopedic surgery and neurology new diagnosis of parkinson's started on Sinemet MRI brain, l-spine and LLE done MRI L Spine: Moderate levoscoliosis with degenerative disease lumbar or lumbar lumbosacral spine. Aseptic discitis L2-L3 with no evidence of prevertebral or epidural soft tissue masses. Moderate degree of stenosis L4-L5 related to a grade 1 anterolisthesis of L4-L5, diffuse bulging annulus with hypertrophic degenerative ages articular facets with thickening of ligamenta flava. No suspicious pathologic bone marrow replacement lumbar vertebrae, acute compression fracture or paraspinal masses. No evidence of severe stenosis. Multiple right and left renal cysts with no evidence of obstructive uropathy. MRI LLE: Impacted fracture greater trochanter of the left hip With extension of the fracture to the medial aspect of the proximal femur without complete disruption of the medial cortex or malalignment. Hematoma surrounding the fracture site with extensive soft tissue swelling of the adjacent musculature involving the gluteal muscle group and abductor groups. The sacrum and SI joints unremarkable. No evidence of intrapelvic hematoma. No evidence of acetabular fracture. MRI Brain: Ischemic changes in the white matter of both cerebral hemisphere sequela most probably to long- standing hypertension or small vessel territory No evidence acute infarct. No evidence acute intracerebral hemorrhage, subdural fluid collection or hydrocephalus. No evidence of normal pressure hydrocephalus. Awaiting d/c to SNF Seen by Neurosurgery - Current Medication List Current Medications: Active Medications Acetaminophen (Tylenol -) 650 mg PO Q6H PRN PRN Reason: PAIN LEVEL 1-5 Carbidopa/Levodopa (Sinemet *Cr* 25/100 -) 1 combo PO TIDCM [facility] Stop: 06/09/18 17:31 Last Admin: 06/09/18 09:26 Dose: 1 combo Carbidopa/Levodopa (Sinemet *Cr* 25/100 -) 1 combo PO TID@0700,1200,1700 [facility] Docusate Sodium (Colace -) 300 mg PO HS [facility] Last Admin: 06/08/18 21:50 Dose: 300 mg Gabapentin (Neurontin -) 300 mg PO TID [facility] Heparin Sodium (Porcine) (Heparin -) 5,000 unit SQ BID [facility] Last Admin: 06/09/18 09:26 Dose: 5,000 unit Potassium Chloride (K-Dur -) 20 meq PO DAILY [facility] Last Admin: 06/09/18 09:26 Dose: 20 meq Senna (Senna -) 2 tab PO HS [facility] Last Admin: 06/08/18 21:50 Dose: 2 tab Timolol Maleate (Timoptic 0.5%) 1 drop OU BID [facility] Last Admin: 06/09/18 09:27 Dose: 1 drop Tramadol HCl (Ultram -) 50 mg PO Q8H PRN PRN Reason: PAIN LEVEL 6-10 Last Admin: 06/06/18 17:44 Dose: 50 mg Triamcinolone Acetonide (Aristocort 0.025% Cream -) 1 gm TP BID [facility] Last Admin: 06/09/18 09:27 Dose: 1 applic - Objective Vital Signs: Vital Signs Temperature 98.2 F 06/09/18 06:00 Pulse Rate 88 06/09/18 06:00 Respiratory Rate 20 06/09/18 06:00 Blood Pressure 154/98 06/09/18 06:00 O2 Sat by Pulse Oximetry (%) 96 06/08/18 21:00 Constitutional: Yes: Well Nourished, No Distress, Calm Cardiovascular: Yes: Regular Rate and Rhythm Respiratory: Yes: Regular Gastrointestinal: Yes: Normal Bowel Sounds, Soft Genitourinary: Yes: WNL Musculoskeletal: Yes: Back Pain, Muscle Weakness (BLLE) Edema: No Peripheral Pulses WNL: Yes Neurological: Yes: Alert, Oriented Psychiatric: Yes: Alert, Oriented Labs: CBC, BMP 06/06/18 06:35 06/08/18 16:30 INR, PTT INR 1.19 (0.83-1.09) H 06/04/18 10:25 Problem List - Problems (1) Parkinson disease Assessment/Plan: -Seen by Neurology -MRI brain reviewed -Started on Sinemet Code(s): G20 - PARKINSON'S DISEASE (2) Hypokalemia Assessment/Plan: -resolved -KCl 20 meq po daily -monitor trend Code(s): E87.6 - HYPOKALEMIA (3) Status post fall Assessment/Plan: -Physical therapy -MRI Lumbar spine without contrast reviewed -NS consult -safety precautions -Increase Gabapentin to 300 mg po TID Code(s): Z91.81 - HISTORY OF FALLING (4) Left hip pain Assessment/Plan: -orthopedic consult -MRI Left hip reviewed -tylenol or tramadol for pain -recommended Physical therapy with WBAT Code(s): M25.552 - PAIN IN LEFT HIP Assessment/Plan see problem list Physical therapy d/c to SNF
[2018-06-09] MEDS ORDERED: GABAPENTIN 300 MG CAPSULE (FP) PO SCH (14:00)
[2018-06-09 15:43] VITALS: BP 144/89; PULSE 78; TEMP 98.3
--- NOTE | 2018-06-09 18:04 | PN ---
Progress Note (short form) - Note Progress Note: NEUROLOGY PROGRESS: Events reviewed. Patient examined in neuro rounds with residents with his consent. Today he acknowledges 3 1/2 yrs of progressive gait deterioration associated with a 25-30 lb weight loss. Moving "a little better" on Sinemet CR 25/100 TID without side effects. B12, TSH, RPR- Normal or negative Exam: Mild OMS. Ox 2018. Trump. Recalls [facility] at 3 mins. + Glabella. Hypophonic speech Masked facies. Gag OK Bradykinetic. Decreased r foot tremor. + cogwheel rigidity. Flexed, festinating gait. IMP: Parkinson's Disease. Mild OMS. SUGGEST: For transfer for rehab at [facility]. Increase Sinemet CR to 50/200 PO TID @ 7, 12, 5 (before meals). Aggressive PT with walker. Neuro F/U at [facility] then as out patient in office. Thank you very much, Chinmay Mitchell MD
== END 2018-06-09 18:32 | DRG 56 ==
LOC: JER 09:26 → JERBED 15:07 → J5S 06-05 19:59
PROVIDERS: ADMIT Student in an Organized Health Care Education/Training Program; ATTEND Student in an Organized Health Care Education/Training Program
DX: G20 Parkinson's disease (principal); S72.112A Displaced fracture of greater trochanter of left femur, initial encounter for closed fracture; I10 Essential (primary) hypertension; E78.00 Pure hypercholesterolemia, unspecified; H40.9 Unspecified glaucoma; M79.605 Pain in left leg; R26.2 Difficulty in walking, not elsewhere classified; E87.6 Hypokalemia; R21 Rash and other nonspecific skin eruption; M47.26 Other spondylosis with radiculopathy, lumbar region; M48.061 Spinal stenosis, lumbar region without neurogenic claudication; M51.36 Other intervertebral disc degeneration, lumbar region; M43.16 Spondylolisthesis, lumbar region; W01.0XXA Fall on same level from slipping, tripping and stumbling without subsequent striking against object, initial encounter; Y92.098 Other place in other non-institutional residence as the place of occurrence of the external cause; Z85.46 Personal history of malignant neoplasm of prostate; Z85.828 Personal history of other malignant neoplasm of skin; Z91.81 History of falling; Z87.891 Personal history of nicotine dependence
CPT/HCPCS: 36415; 70450-TC; 70551-TC; 71045-TC-FY; 72100-TC-FY; 72148-TC; 73523-TC-FY; 73718-LT; 76705-TC; 80048; 80053; 82248; 82607; 83735; 84100; 84443; 85025; 85027; 85610; 85651; 86140; 86593; 86850; 86900; 86901; 87040; 97116-GP; 97161-GP; 99283-25; J1644

== ENCOUNTER 2018-06-27 09:07 | Inpatient (IN) | payer OTHER, MEDICARE ==
[2018-06-27] MEDS ORDERED: VANCOMYCIN 1 GM in D5W (PRE-DOCKED) 1,000 MG/250 ML IVPB ONE (09:32)
[2018-06-27] MEDS ORDERED: PIPERACILLIN/TAZOB 3.375 GM 3.375 GM in DEXTROSE 5%-WATER - 50 ML IVPB ONE (09:32)
[2018-06-27] MEDS ORDERED: SODIUM CHLORIDE 1,000 ML IV STA (09:32)
[2018-06-27] MEDS ORDERED: PROPOFOL 1,000,000 MCG/100 ML VIAL IVPB SCH (09:45)
--- NOTE | 2018-06-27 09:51 | PDOC ---
History of Present Illness - General Stated Complaint: CARDIAC ARREST Time Seen by Provider: 06/27/18 09:25 History Source: EMS, [facility] Records Exam Limitations: Intubated, Unresponsive - History of Present Illness Initial Comments: 06/27/18 09:45 77YOM with h/o Parkinson's disease, BIBEMS c/o cardiopulmonary arrest. Patient was found down at his SNF [facility] after unknown downtime but was still warm, received CPR until EMS arrived, EMS donned Jacob device and started CPR, placed PIV and gave total of 2 epi and 1 amp bicarb, got ROSC after about 10 minutes of them working the patient. They note there were pulses just prior to arriving in the ED and they did stop CPR, continued IVF running on arrival. On patient's records from [facility] there is no indication that he is DNR/DNI and thus is full code on arrival to the ED. Past History - Past Medical History Allergies/Adverse Reactions: Allergies Allergy/AdvReac Type Severity Reaction Status Date / Time No Known Drug Allergies Allergy Verified 06/04/18 09:51 Home Medications: Ambulatory Orders [place]-3 Fatty Acids/Fish Oil [Fish Oil 1,000 mg Softgel] 1,000 mg PO DAILY 09/05 Timolol Maleate [Istalol] 5 ml OU DAILY 09/06/15 Acetaminophen [Tylenol .Regular Strength -] 650 mg PO Q6H PRN tablet 06/08/18 Carbidopa/Levodopa *Cr* 25/100 [Sinemet *Cr* 25/100 -] 1 combo PO TID@0700,1200, 1700 #30 tablet.er MDD 3 06/08/18 Docusate Sodium [Colace -] 300 mg PO HS #60 capsule MDD 3 06/08/18 Timolol 0.5% [Timoptic 0.5%] 1 drop OU BID drops 06/08/18 Triamcinolone 0.025% Cream [Aristocort 0.025% Cream -] 1 gm TP BID #1 tube MDD 2 06/08/18 traMADol HCL [Ultram -] 50 mg PO Q8H PRN #10 tablet MDD 3 06/08/18 Gabapentin 300 mg PO TID #90 capsule 06/09/18 Anemia: No Asthma: No Cancer: Yes (PROSTATE-DX 2010, SKIN) Cardiac Disorders: No CVA: No COPD: No CHF: No Dementia: No Diabetes: No GI Disorders: No Disorders: No HTN: Yes (VARIES FROM HIGH TO LOW - NO MEDS) Hypercholesterolemia: No (BORDERLINE-DIET CONTROLLED) Liver Disease: No Seizures: No Thyroid Disease: No - Surgical History Abdominal Surgery: No Appendectomy: No Cardiac Surgery: No Cholecystectomy: No Lung Surgery: No Neurologic Surgery: No Orthopedic Surgery: No - Immunization History Immunization Up to Date: Yes - Suicide/Smoking/Psychosocial Hx Smoking History: Former smoker Have you smoked in the past 12 months: No Number of Cigarettes Smoked Daily: 20 If you are a former smoker, when did you quit?: 1978 Cigars Per Day: 0 Hx Alcohol Use: No Drug/Substance Use Hx: No Substance Use Type: Alcohol Hx Substance Use Treatment: No Review of Systems - Review of Systems Able to Perform ROS?: No (unconscious) *Physical Exam - Vital Signs Last Vital Signs Temp Pulse Resp BP Pulse Ox 127 H 30 H 97 06/27/18 09:15 06/27/18 09:15 06/27/18 09:15 - Physical Exam Comments: GENERAL: unconscious, intubated, Jacob device on and CPR is not currently ongoing HEENT: PERRL, no e/o facial or head trauma NECK/BACK: no obvious neck hematoma or other trauma CARDIOVASCULAR: extremities warm, initially poor capillary refill, initially no peripheral/carotid/femoral pulses LUNGS/RESPIRATORY: on vent, lungs CTAB GI/ABDOMEN: symmetric, atraumatic outwardly : wearing diaper EXTREMITIES: no deformity or e/o trauma SKIN: lukewarm and dry, no jaundice, no rash, no bruising, no skin breakdown, no cuts NEUROLOGICAL: initially no spontaneous respirations, patient is unable to participate in exam, initially no posturing Moderate Sedation - Procedure Monitoring Vital Signs: Procedure Monitoring Vital Signs Temperature Pulse Rate 127 H 06/27/18 09:15 Respiratory Rate 30 H 06/27/18 09:15 Blood Pressure O2 Sat by Pulse Oximetry (%) 97 06/27/18 09:15 Heart Score/ECG Review #1 06/27/18 09:22 A-fib, rate 139, RBBB, OYc=957, STD in [id number] ED Treatment Course - LABORATORY CBC & Chemistry Diagram: 06/27/18 09:55 06/27/18 09:55 - ADDITIONAL ORDERS Additional order review: Laboratory Results 06/27/18 09:20 POC Glucometer 120 06/27/18 09:20 POC Glucometer 120 Medical Decision Making - Medical Decision Making Pt p/w active cardiopulmonary arrest. Initial Vital Signs Pulse Resp Pulse Ox 127 H 30 H 97 06/27/18 09:15 06/27/18 09:15 06/27/18 09:15 Exam: As noted in Physical Exam section.Unconscious, CPR ongoing, cool and mottled extremities, no spontaneous pulses palpable POC US: No cardiac activity identified DDX IBNLT: Hypovolemia, hypoxemia, H+ ions (acidosis), hyperkalemia, hypokalemia , hypoglycemia, hypothermia, tamponade, tension PTX, thrombosis (GA or PE), trauma, toxins (e.g. toxic overdose) W/U ordered: Monitor, FSBG, rectal temp, EKG CXR ABG CBCD CMP Mg Phos Cardiac panel TSH Lactate BCx UA UCx TX ordered: Transcutaneous pacer applied, O2, AmbuBag, Large bore IV x2, Rapid IVF resuscitation, Narcan, 1-2 amps bicarbonate, CaCl2, KCl, Insulin, Glucose, ACLS/PALS protocol Procedures done: Crash CVC, Intubation, Transvenous pacer placement EKG: Reviewed; results as noted in ECG Review section. CXR: ETT about 4 cm above sanya, no PTX, no focal consolidation Laboratory Tests 06/27/18 06/27/18 06/27/18 09:20 09:55 09:55 WBC 7.5 RBC 4.05 Hgb 12.7 Hct 37.0 MCV 91.4 MCH 31.3 MCHC 34.2 RDW 13.7 Plt Count 179 D MPV 7.8 Absolute Neuts (auto) 5.1 Neutrophils % 68.4 Lymphocytes % 26.5 D Monocytes % 3.1 L Eosinophils % 1.2 Basophils % 0.8 Nucleated RBC % 0 PT with INR 15.10 H INR 1.28 H PTT (Actin FS) 33.6 VBG pH POC VBG pCO2 POC VBG pO2 Mixed VBG HCO3 Sodium Potassium Chloride Carbon Dioxide Anion Gap BUN Creatinine Creat Clearance w eGFR POC Glucometer 120 Random Glucose Lactic Acid Calcium Phosphorus Magnesium Total Bilirubin AST ALT Alkaline Phosphatase Total Protein Albumin Stool Occult Blood 06/27/18 06/27/18 06/27/18 09:55 09:55 09:55 WBC RBC Hgb Hct MCV MCH MCHC RDW Plt Count MPV Absolute Neuts (auto) Neutrophils % Lymphocytes % Monocytes % Eosinophils % Basophils % Nucleated RBC % PT with INR INR PTT (Actin FS) VBG pH 7.19 L* POC VBG pCO2 60.9 H* POC VBG pO2 39.5 Mixed VBG HCO3 22.2 Sodium 145 Potassium 3.3 L Chloride 110 H Carbon Dioxide 23 Anion Gap 13 BUN 28 H Creatinine 1.4 H Creat Clearance w eGFR 48.89 POC Glucometer Random Glucose 196 H Lactic Acid 6.4 H* Calcium 8.7 Phosphorus 7.0 H Magnesium 2.8 H Total Bilirubin 0.8 AST 281 H ALT 123 H Alkaline Phosphatase 210 H Total Protein 5.8 L Albumin 2.6 L Stool Occult Blood 06/27/18 09:56 WBC RBC Hgb Hct MCV MCH MCHC RDW Plt Count MPV Absolute Neuts (auto) Neutrophils % Lymphocytes % Monocytes % Eosinophils % Basophils % Nucleated RBC % PT with INR INR PTT (Actin FS) VBG pH POC VBG pCO2 POC VBG pO2 Mixed VBG HCO3 Sodium Potassium Chloride Carbon Dioxide Anion Gap BUN Creatinine Creat Clearance w eGFR POC Glucometer Random Glucose Lactic Acid Calcium Phosphorus Magnesium Total Bilirubin AST ALT Alkaline Phosphatase Total Protein Albumin Stool Occult Blood Negative Reassessment: Soft pressures now (MAP 65) on propofol drip but otherwise unchanged. CVC placed in right femoral vein by Dr. Savage per procedure note. 06/27/18 10:18 ROSC is achieved. Propofol drip started. Hypothermic therapy is initiated. Dr. Castro has spoken with ICU; patient accepted, consult order placed. I spoke with Dr. Burnette for admission; patient going to ICU. Decision to Admit order corrected. Dr. Castro had conversation with HCP and verified DNR/DNI status; order placed. Vital Signs Temperature 98.4 F 06/27/18 11:51 Pulse Rate 80 06/27/18 13:30 Respiratory Rate 30 H 06/27/18 13:30 Blood Pressure 168/106 H 06/27/18 13:30 O2 Sat by Pulse Oximetry (%) 100 06/27/18 13:30 *DC/Admit/Observation/Transfer Diagnosis at time of Disposition: Cardiopulmonary arrest - Discharge Dispostion Condition at time of disposition: Guarded Decision to Admit order: Yes - Referrals - Patient Instructions - Post Discharge Activity
[2018-06-27] MEDS ORDERED: NOREPINEPHRINE BITARTRATE 4,000 MCG in DEXTROSE 5%-WATER - 496 ML IV SCH (10:00)
--- NOTE | 2018-06-27 10:05 | PDOC ---
Attending Attestation - Resident Resident Name: Adriana Puri - ED Attending Attestation I have performed the following: I have examined & evaluated the patient, The case was reviewed & discussed with the resident, I agree w/resident's findings & plan, Exceptions are as noted - HPI HPI: 06/27/18 10:56 77 year old male c/ hx of parkinson's disease, neuritis presents from [facility] for cardiac arrest. History obtained from EMS and from pt's friend and HCP, Gregoria. As per Gregoria, she visited pt yesterday night and he was in his usual state of health. This [facility] unresponsive when they checked in on him. EMS was activated and CPR was started. As per EMS, pt was intubated and pt found in PEA arrest. After ~10 minutes of resuscitation (including ACLS protocol), pt had ROSC. Arrival to ED, pt seen by us immediately. Noted to be back in PEA arrest (sinus tachycardia) ~5 min ACLS protocol initiated with ROSC. Pt given epi, calcium, sodium bicarb, magnesium. Had ROSC. Pt's SBP ~90s. Started on propofol. Levophed ordered for MAP > 65 Empiric vanc and zosyn ordered. Right femoral CVC placed under ultrasound guidance under sterile conditions under my supervision with Dr. Puri and Dr. Savage Yi catheter ordered. Case discussed with pt's HCP Gregoria who is at the bedside. ICU THERMOMETER TESTER contacted and accepted case. Case discussed with Dr. Burnette for admission. - Physicial Exam PE: 06/27/18 11:05 GENERAL: Unresponsive. intubated. HEAD: No signs of trauma EYES: clera anicteric, conjunctiva clear NECK: Normal ROM, supple, LUNGS: Breath sounds equal, clear to auscultation bilaterally. No wheezes, and no crackles HEART: Regular rate and rhythm, normal S1 and S2, no murmurs, rubs or gallops ABDOMEN: Soft, No masses EXTREMITIES: no edema. No clubbing or cyanosis. No cords, erythema, or tenderness NEUROLOGICAL: Unresponsive SKIN: Warm, Dry, normal turgor, no rashes or lesions noted. - Critical Care Time Total Critical Care Time: 60 Critical Care Statement: The care of this patient involved high complexity decision making to prevent further life threatening deterioration of the patient 's condition and/or to evaluate & treat vital organ system(s) failure or risk of failure. - Medical Decision Making 06/27/18 11:06 Vital Signs Temp Pulse Resp BP Pulse Ox 127 H 30 H 97 06/27/18 09:15 06/27/18 09:15 06/27/18 09:15 Pt is in PEA arrest of unknown etiology. Empiric antibiotics including vanc and zosyn initiated. Pt is now ROSC and stable. HCP alerted and aware. Will initiate hypothermic protocol Pt admitted to the ICU. 06/27/18 13:30 Was alerted by RN. Pt is now having decerebrate findings. Will obtain stat head CT. 06/27/18 13:39 I had spoken to pt's HCP Gregoria. She wishes no further intervention and wishes the patient not to have a head CT as if even if the patient was having a brain bleed, she would not intervene. She requests DNR, which we will place the order in. She is considering possible withdrawal of care. Heart Score/ECG Review #1 ECG reviewed & interpreted by me at: 09:45 06/27/18 10:49 Wide QRS tachycaria with occasional PVCs, left axis deviation, Q wave III, avF, RBBB, QTC 593 msec
[2018-06-27 10:09] LABS: BASO % 0.8 % (0-2.0); EOS % 1.2 % (0-4.5); HEMOGLOBIN 12.7 GM/dL (11.7-16.9); LYMPH % 26.5 % (8-40); MCH 31.3 pg (25.7-33.7); MCHC 34.2 g/dl (32.0-35.9); MEAN CELL VOLUME 91.4 fl (80-96); MEAN PLT VOLUME 7.8 fl (7.5-11.1); MONO % 3.1 % (3.8-10.2); NEUT % 68.4 % (42.8-82.8); PLATELET COUNT 179 K/MM3 (134-434); RBC 4.05 M/mm3 (4.00-5.60); RDW 13.7 % (11.9-15.9); VENOUS PC02 60.9 mmHg (38-52); VENOUS PH 7.19 (7.32-7.42); VENOUS PO2 39.5 mmHg (28-48); WHITE BLOOD COUNT 7.5 K/mm3 (4.0-10.0)
[2018-06-27 10:21] LABS: INR 1.28 (0.83-1.09); PROTHROMBIN TIME (PATIENT) 15.1 SEC (9.7-13.0)
[2018-06-27 10:24] LABS: ALBUMIN 2.6 g/dl (3.4-5.0); ALK PHOS 210 U/L (45-117); ANION GAP 13 MMOL/L (8-16); BILIRUBIN,TOTAL 0.8 mg/dL (0.2-1); BLOOD UREA NITROGEN 28 mg/dL (7-18); CALCIUM 8.7 mg/dL (8.5-10.1); CHLORIDE 110 mmol/L (98-107); CO2 23 mmol/L (21-32); CREATININE 1.4 mg/dL (0.55-1.3); GLUCOSE,RANDOM 196 mg/dL (74-106); MAGNESIUM 2.8 mg/dL (1.8-2.4); POTASSIUM 3.3 mmol/L (3.5-5.1); SGOT/AST 281 U/L (15-37); SGPT/ALT 123 U/L (13-61); SODIUM 145 mmol/L (136-145); TOT PROT 5.8 g/dl (6.4-8.2)
[2018-06-27 10:25] LABS: ACTIVATED PTT 33.6 SECONDS (25.2-36.5)
[2018-06-27] MEDS ORDERED: POTASSIUM CHLORIDE 20 MEQ PREMIX IVPB 100 ML IVPB ONE (10:48)
[2018-06-27 10:59] LABS: URINE APPEARANCE TURBID; URINE BILIRUBIN NEGATIVE (<2.0 mg/dL); URINE COLOR YELLOW; URINE GLUCOSE (UA) NEGATIVE (NEGATIVE); URINE KETONE NEGATIVE (NEGATIVE); URINE LEUK ESTERASE 2+ (NEGATIVE); URINE NITRITE POSITIVE (NEGATIVE); URINE PROTEIN 2+ (NEGATIVE); URINE UROBILINOGEN NEGATIVE mg/dL (0.2-1.0)
[2018-06-27] MEDS ORDERED: MAGNESIUM SULF 50% (8.12 MEQ/2 ML-1 GM VIAL) IVPB ONE (11:00)
--- NOTE | 2018-06-27 11:05 | HP ---
Admitting History and Physical - Admission History of Present Illness: 77YOM with h/o Parkinson's disease, BIBEMS c/o cardiopulmonary arrest. Patient was found down at his SNF [facility] after unknown downtime but was still warm, received CPR until EMS arrived, EMS donned Jacob device and started CPR, placed PIV and gave total of 2 epi and 1 amp bicarb, got ROSC after about 10 minutes of them working the patient. They note there were pulses just prior to arriving in the ED and they did stop CPR, continued IVF running on arrival. On patient's records from [facility] there is no indication that he is DNR/DNI and thus is full code on arrival to the ED. 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 ENT: Yes: Other (glaucoma) - Smoking History Smoking history: Former smoker Have you smoked in the past 12 months: No Aproximately how many cigarettes per day: 20 If you are a former smoker, when did you quit?: 1978 - Alcohol/Substance Use Hx Alcohol Use: No Home Medications - Allergies Allergies/Adverse Reactions: Allergies Allergy/AdvReac Type Severity Reaction Status Date / Time No Known Drug Allergies Allergy Verified 06/04/18 09:51 - Home Medications Home Medications: Ambulatory Orders [place]-3 Fatty Acids/Fish Oil [Fish Oil 1,000 mg Softgel] 1,000 mg PO DAILY 09/05 Timolol Maleate [Istalol] 5 ml OU DAILY 09/06/15 Acetaminophen [Tylenol .Regular Strength -] 650 mg PO Q6H PRN tablet 06/08/18 Carbidopa/Levodopa *Cr* 25/100 [Sinemet *Cr* 25/100 -] 1 combo PO TID@0700,1200, 1700 #30 tablet.er MDD 3 06/08/18 Docusate Sodium [Colace -] 300 mg PO HS #60 capsule MDD 3 06/08/18 Timolol 0.5% [Timoptic 0.5%] 1 drop OU BID drops 06/08/18 Triamcinolone 0.025% Cream [Aristocort 0.025% Cream -] 1 gm TP BID #1 tube MDD 2 06/08/18 traMADol HCL [Ultram -] 50 mg PO Q8H PRN #10 tablet MDD 3 06/08/18 Gabapentin 300 mg PO TID #90 capsule 06/09/18 Physical Examination Vital Signs: Vital Signs Temperature Pulse Rate 127 H 06/27/18 09:15 Respiratory Rate 30 H 06/27/18 09:15 Blood Pressure O2 Sat by Pulse Oximetry (%) 97 06/27/18 09:15 Cardiovascular: Yes: S1, S2 Respiratory: Yes: Mechanically Ventilated Gastrointestinal: Yes: Normal Bowel Sounds, Soft Edema: No Neurological: Yes: Unresponsive Labs: CBC, BMP 06/27/18 09:55 06/27/18 09:55 Problem List - Problems (1) Cardiopulmonary arrest Assessment/Plan: AWAIT RESULTS OF TESTING CONTINUE WITH SUPPORTIVE MEASURES CARDIOLOGY VENT SUPPORT ICU Code(s): I46.9 - CARDIAC ARREST, CAUSE UNSPECIFIED (2) Hypokalemia Code(s): E87.6 - HYPOKALEMIA (3) Sepsis Assessment/Plan: MUST RULE OUT FOLLOW LABS CULTURES IV ABX Code(s): A41.9 - SEPSIS, UNSPECIFIED ORGANISM
[2018-06-27] MEDS ORDERED: PIPERACILLIN/TAZOB 4.5 GM 4.5 GM/100 ML BAG IVPB ONE (11:10)
[2018-06-27] MEDS ORDERED: VANCOMYCIN 1 GRAM (PRE-DOCKED) 1,000 MG/250 ML BAG IVPB ONE (11:10)
--- NOTE | 2018-06-27 11:10 | PDOC ---
*Physical Exam - Vital Signs Last Vital Signs Temp Pulse Resp BP Pulse Ox 127 H 30 H 97 06/27/18 09:15 06/27/18 09:15 06/27/18 09:15 ED Treatment Course - LABORATORY CBC & Chemistry Diagram: 06/27/18 09:55 06/27/18 09:55 - ADDITIONAL ORDERS Additional order review: Laboratory Results 06/27/18 06/27/18 06/27/18 09:56 09:55 09:55 PT with INR INR PTT (Actin FS) VBG pH POC VBG pCO2 POC VBG pO2 Mixed VBG HCO3 Sodium 145 Potassium 3.3 L Chloride 110 H Carbon Dioxide 23 Anion Gap 13 BUN 28 H Creatinine 1.4 H Creat Clearance w eGFR 48.89 POC Glucometer Random Glucose 196 H Lactic Acid 6.4 H* Calcium 8.7 Phosphorus 7.0 H Magnesium 2.8 H Total Bilirubin 0.8 AST 281 H ALT 123 H Alkaline Phosphatase 210 H Total Protein 5.8 L Albumin 2.6 L Stool Occult Blood Negative 06/27/18 06/27/18 06/27/18 09:55 09:55 09:20 PT with INR 15.10 H INR 1.28 H PTT (Actin FS) 33.6 VBG pH 7.19 L* POC VBG pCO2 60.9 H* POC VBG pO2 39.5 Mixed VBG HCO3 22.2 Sodium Potassium Chloride Carbon Dioxide Anion Gap BUN Creatinine Creat Clearance w eGFR POC Glucometer 120 Random Glucose Lactic Acid Calcium Phosphorus Magnesium Total Bilirubin AST ALT Alkaline Phosphatase Total Protein Albumin Stool Occult Blood 06/27/18 06/27/18 09:55 09:20 RBC 4.05 MCV 91.4 MCHC 34.2 RDW 13.7 MPV 7.8 Neutrophils % 68.4 Lymphocytes % 26.5 D Monocytes % 3.1 L Eosinophils % 1.2 Basophils % 0.8 POC Glucometer 120 - Medications Given in the ED: ED Medications Discontinued Medications Generic Name Dose Route Start Last Admin Trade Name Freq PRN Reason Stop Dose Admin Sodium Chloride 1,000 mls @ 1,000 mls/hr 06/27/18 09:32 06/27/18 10:00 Normal Saline - IV 06/27/18 10:31 1,000 mls/hr ASDIR STA Administration *DC/Admit/Observation/Transfer Diagnosis at time of Disposition: Cardiopulmonary arrest - Discharge Dispostion Condition at time of disposition: Guarded - Referrals - Patient Instructions - Post Discharge Activity Procedures - Central Line Central Line Lumen: triple Central Line Position: femoral (R) Anesthesia: 1% Lidocaine Amount of anesthesia (ccs): 5 Complications: none Post Central Line Insertion: sutured, good blood return Progress: 06/27/18 11:07 Ultrasound guided central line in R Femoral Placed under the supervision of Attending Dr. Castro and Resident Dr. Puri Procedure completed without complications Sterile procedure 1% lidocaine approx 5cc for anesthesia Central sutured in place Bioocclussive dressing applied
[2018-06-27] MEDS ORDERED: SODIUM CHLORIDE 0.9% 500 ML INFUS.BAG IV ONE (11:22)
[2018-06-27 12:05] LABS: ANISOCYTOSIS 0; MACROCYTOSIS 0; PLATELET ESTIMATE NORMAL
[2018-06-27] MEDS ORDERED: KCL 10 MEQ IVPB 20 MEQ/200 ML INFUS.BAG IVPB ONE (12:25)
[2018-06-27 12:29] LABS: ARTERIAL BLD GAS O2 SATURATION 99.8 % (90-98.9); ARTERIAL BLOOD GAS BASE EXCESS -0.6 meq/l (-2-2); ARTERIAL BLOOD GAS PCO2 39.9 mmHg (35-45); ARTERIAL BLOOD GAS pH 7.39 (7.35-7.45); CARBOXYHEMOGLOBIN 0.4 gm% (0.5-2.0)
[2018-06-27 12:30] LABS: ALLENS TEST POSITIVE
--- NOTE | 2018-06-27 14:14 | CON.CARD ---
Consult Consult Specialty:: Cardiology Referred by:: Vasile Reason for Consultation:: cardiac arrest - History of Present Illness Chief Complaint: cardiac arrest History of Present Illness: 77YOM with h/o Parkinson's disease, BIBEMS c/o cardiopulmonary arrest at his SNF after unknown downtime but was still warm, received CPR until EMS arrived, got ROSC after about 10 minutes per EMS. Second arrest in ER again ROSC. The patient is now unresponsive on a ventilator. Unable to give history. ECG shows afib with RVR initially then NSR on tele monitor. 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 ENT: Yes: Other (glaucoma) - Alcohol/Substance Use Hx Alcohol Use: No - Smoking History Smoking history: Former smoker Have you smoked in the past 12 months: No Aproximately how many cigarettes per day: 20 If you are a former smoker, when did you quit?: 1978 Home Medications - Allergies Allergies/Adverse Reactions: Allergies Allergy/AdvReac Type Severity Reaction Status Date / Time No Known Drug Allergies Allergy Verified 06/04/18 09:51 - Home Medications Home Medications: Ambulatory Orders [place]-3 Fatty Acids/Fish Oil [Fish Oil 1,000 mg Softgel] 1,000 mg PO DAILY 09/05 Timolol Maleate [Istalol] 5 ml OU DAILY 09/06/15 Acetaminophen [Tylenol .Regular Strength -] 650 mg PO Q6H PRN tablet 06/08/18 Carbidopa/Levodopa *Cr* 25/100 [Sinemet *Cr* 25/100 -] 1 combo PO TID@0700,1200, 1700 #30 tablet.er MDD 3 06/08/18 Docusate Sodium [Colace -] 300 mg PO HS #60 capsule MDD 3 06/08/18 Timolol 0.5% [Timoptic 0.5%] 1 drop OU BID drops 06/08/18 Triamcinolone 0.025% Cream [Aristocort 0.025% Cream -] 1 gm TP BID #1 tube MDD 2 06/08/18 traMADol HCL [Ultram -] 50 mg PO Q8H PRN #10 tablet MDD 3 06/08/18 Gabapentin 300 mg PO TID #90 capsule 06/09/18 Review of Systems Unable to obtain ROS, reason: arrest Vital Signs: Vital Signs Temperature 98.4 F 06/27/18 11:51 Pulse Rate 80 06/27/18 13:30 Respiratory Rate 30 H 06/27/18 13:30 Blood Pressure 168/106 H 06/27/18 13:30 O2 Sat by Pulse Oximetry (%) 100 06/27/18 13:30 Constitutional: Yes: Thin Eyes: Yes: Conjunctiva Clear, EOM Intact HENT: Yes: Atraumatic, Normocephalic Neck: Yes: Trachea Midline Respiratory: Yes: CTA Bilaterally, Mechanically Ventilated Gastrointestinal: Yes: Normal Bowel Sounds, Soft Cardiovascular: Yes: Regular Rate and Rhythm JVD: No Carotid Bruit: No PMI: Non-Displaced Heart Sounds: Yes: S1, S2 Edema: No Peripheral Pulses WNL: Yes - Other Data Labs, Other Data: CBC, BMP 06/27/18 09:55 06/27/18 09:55 INR, PTT INR 1.28 (0.83-1.09) H 06/27/18 09:55 Troponin, BNP 06/27/18 06/27/18 09:55 13:12 Troponin I 0.17 H 2.03 H* Troponin, BNP 06/27/18 06/27/18 09:55 13:12 Troponin I 0.17 H 2.03 H* Imaging - Results Chest X-ray: Report Reviewed EKG: Report Reviewed Assessment/Plan 77YOM with h/o Parkinson's disease, BIBEMS c/o cardiopulmonary arrest at his SNF after unknown downtime but was still warm, received CPR until EMS arrived, got ROSC after about 10 minutes per EMS. Second arrest in ER again ROSC. The patient is now unresponsive on a ventilator. Unable to give history. ECG shows afib with RVR initially then NSR on tele monitor. 1. Cardiac Arrest -- would possibly be due to sepsis, PE. -Doubt primary cardiac event. He is not a candidate for cardiac intervention. -follow neurologic status. -will need GOK discussion. 2. PAF- Defer AC or treatment at this time. Prognosis is critical.
--- NOTE | 2018-06-27 14:39 | EKG ---
Test Reason : Blood Pressure : / mmHG Vent. Rate : 131 BPM Atrial Rate : 131 BPM P-R Int : 000 ms QRS Dur : 136 ms QT Int : 402 ms P-R-T Axes : 000 -39 060 degrees QTc Int : 593 ms ATRIAL FIBRILLATION LEFT AXIS DEVIATION RIGHT BUNDLE BRANCH BLOCK INFERIOR INFARCT , AGE UNDETERMINED ABNORMAL ECG Confirmed by Dewey Hyde MD ([id number]) on 06/27/2018 2:39:45 PM Referred By: Confirmed By:Dewey Hyde MD
[2018-06-27 22:31] VITALS: BMI 22.8
--- NOTE | 2018-06-28 08:45 | PN ---
Progress Note, Physician - Current Medication List Current Medications: Active Medications Propofol (Diprivan -) 1,000,000 mcg in 100 mls @ 2.116 mls/hr IVPB TITR ALAN; Protocol Last Titration: 06/28/18 00:00 Dose: 30 mcg/kg/min, 12.696 mls/hr Norepinephrine Bitartrate 4, (000 mcg/ Dextrose) 500 mls @ 37.5 mls/hr IV TITR ALAN; Protocol Last Admin: 06/27/18 13:42 Dose: Not Given - Objective Vital Signs: Vital Signs Temperature 98.3 F 06/28/18 06:00 Pulse Rate 74 06/28/18 08:34 Respiratory Rate 19 06/28/18 08:34 Blood Pressure 158/93 06/28/18 06:00 O2 Sat by Pulse Oximetry (%) 100 06/28/18 08:34 Cardiovascular: Yes: S1, S2 Neurological: Yes: Unresponsive Labs: CBC, BMP 06/27/18 09:55 06/27/18 09:55 INR, PTT INR 1.28 (0.83-1.09) H 06/27/18 09:55 Problem List - Problems (1) Cardiopulmonary arrest Assessment/Plan: AWAIT RESULTS OF TESTING CONTINUE WITH SUPPORTIVE MEASURES CARDIOLOGY VENT SUPPORT ICU d/w health care proxy -pt wishes no intubation plan comfort care terminal weaning Code(s): I46.9 - CARDIAC ARREST, CAUSE UNSPECIFIED (2) Hypokalemia Code(s): E87.6 - HYPOKALEMIA (3) Sepsis Code(s): A41.9 - SEPSIS, UNSPECIFIED ORGANISM
[2018-06-28] MEDS ORDERED: MORPHINE 100 MG in SODIUM CHLORIDE 98 ML IVPB SCH (10:00)
--- NOTE | 2018-06-28 10:09 | CONSULT ---
Consult Consult Specialty:: PULM/CCM Referred by:: Dr. Jorge Burnette Reason for Consultation:: CARDIAC ARREST - History of Present Illness Chief Complaint: CARDIAC ARREST History of Present Illness: Mrs. Rivera is a 77 y/o woman SNF pt w/ end stage Parkinson's disease, DNR/ DNI. Cardiac Arrest in the SNF but received CPR & then got ROSC. Cardiac arrest again in the ED & resucitated again. Pt presented to the ICU O/N unresponsive on the ventilator w/ decerebrate posturing & MSOF. Pt is Moribund. 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: Parkinson's ENT: Yes: Other (glaucoma) - Alcohol/Substance Use Hx Alcohol Use: No - Smoking History Smoking history: Former smoker Have you smoked in the past 12 months: No Aproximately how many cigarettes per day: 20 If you are a former smoker, when did you quit?: 1978 - Social History History of Recent Travel: No Home Medications - Allergies Allergies/Adverse Reactions: Allergies Allergy/AdvReac Type Severity Reaction Status Date / Time No Known Drug Allergies Allergy Verified 06/04/18 09:51 - Home Medications Home Medications: Ambulatory Orders [place]-3 Fatty Acids/Fish Oil [Fish Oil 1,000 mg Softgel] 1,000 mg PO DAILY 09/05 Timolol Maleate [Istalol] 5 ml OU DAILY 09/06/15 Acetaminophen [Tylenol .Regular Strength -] 650 mg PO Q6H PRN tablet 06/08/18 Carbidopa/Levodopa *Cr* 25/100 [Sinemet *Cr* 25/100 -] 1 combo PO TID@0700,1200, 1700 #30 tablet.er MDD 3 06/08/18 Docusate Sodium [Colace -] 300 mg PO HS #60 capsule MDD 3 06/08/18 Timolol 0.5% [Timoptic 0.5%] 1 drop OU BID drops 06/08/18 Triamcinolone 0.025% Cream [Aristocort 0.025% Cream -] 1 gm TP BID #1 tube MDD 2 06/08/18 traMADol HCL [Ultram -] 50 mg PO Q8H PRN #10 tablet MDD 3 06/08/18 Gabapentin 300 mg PO TID #90 capsule 06/09/18 Family Disease History - Family Disease History Family History: Unable to Obtain (Pt is Uncon/Unresp Intubated) Review of Systems Unable to obtain ROS, reason: Pt is Uncon/Unresp Intuba Physical Exam Vital Signs: Vital Signs Temperature 98.3 F 06/28/18 06:00 Pulse Rate 74 06/28/18 08:34 Respiratory Rate 06/28/18 08:34 Blood Pressure 158/93 06/28/18 06:00 O2 Sat by Pulse Oximetry (%) 100 06/28/18 08:34 Eyes: Yes: Other (Fixed & Dilated) HENT: Yes: WNL, Atraumatic, Normocephalic Neck: Yes: WNL Cardiovascular: Yes: WNL, Regular Rate and Rhythm Respiratory: Yes: Intubated, Mechanically Ventilated Gastrointestinal: Yes: Hypoactive Bowel Sounds ...Rectal Exam: Yes: Deferred Renal/: Yes: Anuria Breast(s): Yes: WNL Musculoskeletal: Yes: WNL Extremities: Yes: WNL Edema: Yes Edema: LUE: 3+, RUE: 3+, LLE: 3+, RLE: 3+ Neurological: Yes: Unresponsive Labs: CBC, BMP 06/27/18 09:55 06/27/18 09:55 Imaging - Results Chest X-ray: Image Reviewed (CXR 06/27: No sign of infiltrate or failure. Large heart. Endotracheal tube in place. Apical capping.) EKG: Image Reviewed (EKG 06/27: A-fib, rate 139, RBBB, HPd=929, STD in [id number]) Problem List - Problems (1) Cardiopulmonary arrest Code(s): I46.9 - CARDIAC ARREST, CAUSE UNSPECIFIED Assessment/Plan ASSESS: This is a 77 y/o woman w/ end stage Parkinson's disease now s/p cardiac arrest unresponsive on the ventilator w/ decerebrate posturing & MSOF. Pt is Moribund. Family requesting w/ drawl of care. PLAN: -Family -Music -Social Wrk -Spritiual Guidance prn -MSO4 gtt -Prop gtt -Extubate DGL, ACNP-[facility] ICU PULM/CCM [id number] Critical Care Total Critical Care Time (in minutes): 45 Critical Care Statement: The care of this patient involved high complexity decision making to prevent further life threatening deterioration of the patient 's condition and/or to evaluate & treat vital organ system(s) failure or risk of failure.
[2018-06-28 13:46] VITALS: TEMP 98
[2018-06-28 13:47] VITALS: BP 97/57; PULSE 82
--- NOTE | 2018-06-29 15:10 | DS ---
Physical Examination Vital Signs: Vital Signs Temperature 98 F 06/28/18 10:00 Pulse Rate 82 06/28/18 11:30 Respiratory Rate 30 H 06/28/18 11:30 Blood Pressure 97/57 L 06/28/18 11:30 O2 Sat by Pulse Oximetry (%) 95 06/28/18 11:00 Labs: CBC, BMP 06/27/18 09:55 06/27/18 09:55 Discharge Summary Reason For Visit: CARDIOPULMONARY ARREST Hospital Course: - Admission History of Present Illness: 77YOM with h/o Parkinson's disease, BIBEMS c/o cardiopulmonary arrest. Patient was found down at his SNF [facility] after unknown downtime but was still warm, received CPR until EMS arrived, EMS donned Jacob device and started CPR, placed PIV and gave total of 2 epi and 1 amp bicarb, got ROSC after about 10 minutes of them working the patient. They note there were pulses just prior to arriving in the ED and they did stop CPR, continued IVF running on arrival. On patient's records from [facility] there is no indication that he is DNR/DNI and thus is full code on arrival to the ED. pT SEEN IN eR ON VENT UNRESPONSIVE patient admitted came to ICU extubated and then Condition: Guarded - Instructions Referrals: Jorge Burnette MD [Primary Care Provider] - Disposition: - Home Medications Comprehensive Discharge Medication List: Ambulatory Orders [place]-3 Fatty Acids/Fish Oil [Fish Oil 1,000 mg Softgel] 1,000 mg PO DAILY 09/05 Timolol Maleate [Istalol] 5 ml OU DAILY 09/06/15 Acetaminophen [Tylenol .Regular Strength -] 650 mg PO Q6H PRN tablet 06/08/18 Carbidopa/Levodopa *Cr* 25/100 [Sinemet *Cr* 25/100 -] 1 combo PO TID@0700,1200, 1700 #30 tablet.er MDD 3 06/08/18 Docusate Sodium [Colace -] 300 mg PO HS #60 capsule MDD 3 06/08/18 Timolol 0.5% [Timoptic 0.5%] 1 drop OU BID drops 06/08/18 Triamcinolone 0.025% Cream [Aristocort 0.025% Cream -] 1 gm TP BID #1 tube MDD 2 06/08/18 traMADol HCL [Ultram -] 50 mg PO Q8H PRN #10 tablet MDD 3 06/08/18 Gabapentin 300 mg PO TID #90 capsule 06/09/18
== END 2018-06-28 14:45 | disposition expired | DRG 296 ==
LOC: JER 09:07 → JERBED 10:18 → JICU 21:28
PROVIDERS: ADMIT Family Medicine; ATTEND Family Medicine
PROC: 5A1935Z Respiratory Ventilation, Less than 24 Consecutive Hours (ICD-10-PCS; principal; 2018-06-27)
PROC: 06HM33Z Insertion of Infusion Device into Right Femoral Vein, Percutaneous Approach (ICD-10-PCS; 2018-06-27)
PROC: B54BZZA Ultrasonography of Right Lower Extremity Veins, Guidance (ICD-10-PCS; 2018-06-27)
DX: I46.9 Cardiac arrest, cause unspecified (principal); A41.9 Sepsis, unspecified organism; G20 Parkinson's disease; I45.10 Unspecified right bundle-branch block; E87.6 Hypokalemia; Z87.891 Personal history of nicotine dependence; I48.0 Paroxysmal atrial fibrillation; Z66 Do not resuscitate
CPT/HCPCS: 36415; 36600; 71045-TC-FY; 80053; 81003; 81015; 82272; 82375; 82550; 82553; 82803; 82962; 83050; 83605; 83735; 84100; 84484; 85025; 85610; 85730; 87040; 87086; 87186; 93005; 93010; 94002; 99285-25; J7030